=== PATIENT | female | born 1965 | race Caucasian/White ===

== ENCOUNTER → 2025-02-07 | Outpatient (CLI) | payer MEDICAID, SELFPAY ==
--- NOTE | 2025-02-07 11:07 | MRI_ITS ---
PROCEDURE: MRI SPINE LUMBAR (ROUTINE) 02/07/2025 REASON FOR EXAM: PAIN, RADICULOPATHY TECHNIQUE: Procedure Code: MRISPL Modality: MR Procedure: SPINE LUMBAR (ROUTINE) Multiplanar and multisequential MRI of the lumbar spine was performed without contrast. COMPARISON: Radiographs dated 11/08/2024. FINDINGS: 5 [id number] lumbar-type vertebrae are preserved in height, with anatomic alignment and normal marrow signal. Mild multilevel spondylotic changes with varying degrees of disc desiccation and narrowing, anterior endplate osteophytosis, and hypertrophic facet arthropathy. Conus appears normal in signal and morphology, terminating at L1. Normal appearance of the cauda equina. No significant abnormality in the visualized paravertebral soft tissues. L1-2: Mild dorsal annular disc bulge, no significant spinal canal or foraminal narrowing. L2-3: Dorsal disc bulge and ligamentum flavum/facet hypertrophy, results in mild spinal canal narrowing predominantly with effacement of the left lateral recess. No significant foraminal narrowing. L3-4: No significant disc bulge, spinal canal or foraminal narrowing. L4-5: Mild dorsal annular disc bulge, with mild spinal canal and bilateral neural foraminal narrowing. L5-S1: Mild dorsal annular disc bulge. No significant spinal canal narrowing. Mild bilateral neural foraminal narrowing, slightly more pronounced on the right. MRI/Spine Lumbar (Routine) IMPRESSION: 1. No acute abnormality. No subluxation. 2. Mild multilevel spondylotic changes. No high-grade spinal canal narrowing. There is at most mild left lateral recess stenosis at the level of L2-3. 3. Neural foraminal narrowing is mild bilaterally at L4-5 and L5-S1. Reading Location: [id number]
== END | disposition home or self-care (01) ==
PROVIDERS: PCP Nurse Practitioner Family; Referring Provider Student in an Organized Health Care Education/Training Program; Visit Provider Student in an Organized Health Care Education/Training Program
DX: M54.16 Radiculopathy, lumbar region (principal); M43.16 Spondylolisthesis, lumbar region; M51.360 Other intervertebral disc degeneration, lumbar region with discogenic back pain only
CPT/HCPCS: 72148

== ENCOUNTER → 2025-03-04 | Outpatient (CLI) | payer MEDICAID, SELFPAY ==
--- NOTE | 2025-03-04 10:07 | MRI_ITS ---
PROCEDURE: SPINE CERVICAL (ROUTINE) 03/04/2025 REASON FOR EXAM: L ARM PAIN, WORSENING DEXTERITY TECHNIQUE: Procedure Code: MRISPC Modality: MR Procedure: SPINE CERVICAL (ROUTINE) Multiplanar and multisequence images were obtained without IV contrast administration. COMPARISON: January 31, 2025 FINDINGS: Minimal straightening of the cervical lordosis. Cord signal is grossly unremarkable. There is degenerative disc space narrowing between C5 and C7 and minimal anterolisthesis of C4 on C5. A partially empty sella is likely present but incompletely included in the field of view. The paravertebral soft tissues are unremarkable although the left vertebral artery is fairly diminutive on image 34, series 65 and may be diseased. C2-3: No significant disc disease. AP canal diameter is 8.6 mm. C3-4: There is a broad-based posterior disc bulge more pronounced in the central zone and in the left foraminal zone with minimal narrowing of the left neural foramen. There is left-sided facet arthropathy as well. The AP canal diameter measures 8.7 mm. C4-5: There is a broad-based posterior disc bulge most pronounced in the [id number]-right foraminal zone. There is bilateral facet arthropathy as well. The left neural foramen is likely narrowed. The AP canal diameter measures 9.3 mm. C5-6: There is a broad-based disc bulge most pronounced in the right subarticular and foraminal zones on image 54, series 65. The neural foramen is slightly narrowed. The AP canal diameter measures 8.9 mm. C6-7: There are foraminal zone protrusions with narrowing of the neural foramina bilaterally as well as left-sided facet arthropathy. The central canal measures 9.8 mm. C7-T1: Unremarkable MRI/Spine Cervical (Routine) IMPRESSION: Multilevel degenerative disc disease and generalized central canal narrowing wi th details as described above by individual level. The left vertebral artery is potentially significantly narrowed at around C4-C5 . Correlate clinically. CTA if clinically indicated. Additional findings as above. Reading Location: [facility]
--- OUTSIDE RECORDS SUMMARY | 2025-03-04 11:44 | XMS RPT_ITS | CCD ---
Author Organization [facility] Care Team Providers Care Computer Analyst Name Role Phone RHONDA GUTIERREZ, ALEXANDREA Ramirez Primary Care Physicia n MELISSA DARLING MD Attending Unavailying e RHONDA GUTIERREZ, ALEXANDREA Ramirez Primary Care Unava ilable MELISSA DARLING MD Attending Unavailying e RHONDA GUTIERREZ, ALEXANDREA Ramirez Primary Care Unava ilable Rhonda HARBOR TUG CAPTAIN-CAlexandrea Primary Care Provider [phone] Rhonda HARBOR TUG CAPTAIN-C, Alexandrea Referring Provider Paris Jones Attending Provider [phone] Anastasiia MAZARIEGOS, Dr. Barriga Attending Provider [phone] Unavailable Primary Care Provider UnavailMAGALY Cruz Attending Unavailable PARIS CORTES Primary Care Unavailable PARIS CORTES Attending Unavailable ALEXANDREA ECHOLS CNP Consulting Unavailable PARIS CORTES Admitting Unavailable PROVIDER, UNKNOWN Consulting Unavailable PROVIDER, UNKNOWN Consulting Unavailable ALEXANDREA ECHOLS CNP Primary Care Unavailable ALEXANDREA ECHOLS CNP Attending Unavailable ALEXANDREA ECHOLS CNP Consulting Unavailable ALEXANDREA ECHOLS CNP Admitting Unavailable PROVIDER, UNKNOWN Consulting Unavailable PROVIDER, UNKNOWN Consulting Unavailable ALEXANDREA ECHOLS CNP Consulting Unavailable ALEXANDREA ECHOLS CNP Admitting Unavailable ALEXANDREA ECHOLS CNP Attending Unavailable ALEXANDREA ECHOLS CNP Primary Care Unavailable PROVIDER, UNKNOWN Consulting Unavailable PROVIDER, UNKNOWN Consulting Unavailable ALEXANDREA ECHOLS CNP Consulting Unavailable ALEXANDREA ECHOLS CNP Admitting Unavailable ALEXANDREA ECHOLS CNP Attending Unavailable ALEXANDREA ECHOLS CNP Primary Care Unavailable PROVIDER, UNKNOWN Consulting Unavailable PROVIDER, UNKNOWN Consulting Unavailable ALEXANDREA ECHOLS CNP Primary Care Unavailable ALEXANDREA ECHOLS CNP Consulting Unavailable ALEAXNDREA ECHOLS CNP Attending Unavailable ALEXANDREA ECHOLS CNP Admitting Unavailable PROVIDER, UNKNOWN Consulting Unavailable PROVIDER, UNKNOWN Consulting Unavailable ALEXANDREA ECHOLS CNP Primary Care Unavailable ALEXANDREA ECHOLS CNP Consulting Unavailable ALEXANDREA ECHOLS CNP Attending Unavailable ALEXANDREA ECHOLS CNP Admitting Unavailable PROVIDER, UNKNOWN Consulting Unavailable PROVIDER, UNKNOWN Consulting Unavailable ALEXANDREA ECHOLS CNP Primary Care Unavailable ALEXANDREA ECHOLS CNP Consulting Unavailable ALEXANDREA ECHOLS CNP Attending Unavailable ALEXANDREA ECHOLS CNP Admitting Unavailable PROVIDER, UNKNOWN Consulting Unavailable PROVIDER, UNKNOWN Consulting Unavailable ALEXANDREA ECHOLS CNP Consulting Unavailable MISSY MEAD DO Primary Care Unavailable MISSY MEAD DO Attending Unavailable ALEXANDREA ECHOLS CNP Referring Unavailable MISSY MEAD DO Admitting Unavailable PROVIDER, UNKNOWN Consulting Unavailable PROVIDER, UNKNOWN Consulting Unavailable Rhonda COELHO-CAlexandrea Primary Care Physician [phone] Paris Jones Attending Physician [phone] Anastasiia MAZARIEGOS, Dr. Barriga Attending Physician [phone] Paris Jones Referring Provider Paris Cortes Attending Unavailable Rhonda HARBOR TUG CAPTAIN, Alexandrea Primary Care Unavailable Rhonda COELHO, Alexandrea Referring Unavailable Linus Laurent Attending Unavailable Rhonda COELHO, Alexandrea Primary Care Unavailable Rhonda HARBOR TUG CAPTAIN, Alexandrea Referring Unavailable Rhonda COELHO, Alexandrea Primary Care Unavailable Paris Cortes Attending Unavailable Cindy Cortesyn Attending Unavailable Rhonda COELHO, Alexandrea Primary Care Unavailable Rhonda COELHO, Alexandrea Referring Unavailable Dillon Cortestlyn Referring Unavailable Rhonda COELHO, Alexandrea Primary Care Unavailable Cindy Cortesyn Attending Unavailable Cindy Cortesyn Attending Unavailable Cindy Cortesyn Referring Unavailable Rhonda HARBOR TUG CAPTAIN, Alexandrea Primary Care Unavailable Linus Laurent Attending Unavailable Rhonda HARBOR TUG CAPTAIN, Alexandrea Primary Care Unavailable Allergies Allergy Classification Reported Allergen(s) Allergy Type Date of Onset Reaction(s) Facility (1 source) blood pressure; Translations: [blood pressure] Propensity to adverse reactions (disorder) 5 [facility] Medications Current Medications Medication Drug Class(es) Dates Sig (Normalized) Sig (Original) benazepril hydrochloride 20 mg oral tablet (6 sources) Angiotensin Converting Enzyme Inhibitor Start: 9 take 1 tablet by mouth once daily Benazepril 20 mg tablet Active 20 mg PO DAILY December 25, 2019 12:00am Complies with drug therapy cyclobenzaprine hydrochloride 5 mg oral tablet (4 sources) Muscle Relaxant Start: 1 take 1 tablet by mouth at bedtime as needed Cyclobenzaprine 5 mg tablet Active 5 mg PO AT BEDTIME as needed January 15, 2021 12:00am Complies with drug therapy escitalopram 10 mg oral tablet (1 source) Serotonin Reuptake Inhibitor Start: 5 take 1 tablet by mouth once daily escitalopram oxalate (LEXAPRO) 10 mg tablet Take 1 tablet by mouth once daily. 10/11/2024 Active hydroCHLOROthiazide 25 mg oral tablet (6 sources) Thiazide Diuretic Start: 9 take 1 tablet by mouth once Hydrochlorothiazide 25 mg tablet Active 25 mg PO ONCE December 25, 2019 12:00am Complies with drug therapy ibuprofen 800 mg oral tablet (5 sources) Nonsteroidal Anti-inflammator y Drug Start: 5 take 1 tablet by mouth three times daily Ibuprofen 800 mg tablet Active 800 mg PO THREE TIMES A DAY November 08, 2024 12:00am Complies with drug therapy labetalol hydrochloride 200 mg oral tablet (7 sources) beta-Adrenergic Stephenie Start: 4 labetalol 200 mg oral tablet See Instructions, 1.5 tab Oral 1-[address] angiogram, # 2 tab(s), 0 Refill(s) Start Date: 06/23/23 Status: Ordered Start: 06-19-2008 take 1 tablet by [place] th twice daily Labetalol 200 mg tablet Active 200 mg PO TWICE A DAY December 25, 2019 12:00am Complies with drug therapy LORazepam 1 mg oral tablet (4 sources) Benzodiazepine Start: 02-17-2025 take 1 tablet by mouth twice daily Lorazepam 1 mg tablet Active 1 mg PO TWICE A DAY as needed for claustrophobia 2 0 February 17, 2025 12:00am take 1 tab 1 hour before MRI, take 2nd when you arrive for MRI Complies with drug therapy Start: 02-17-2025 take 1 tablet by [place] [facility] twice daily Lorazepam 1 mg tablet Active 1 mg PO TWICE A DAY as needed for claustrophobia 2 0 February 17, 2025 12:00am take 1 tab 1 hour before MRI, take 2nd when you arrive for MRI Complies with drug therapy Start: 11-21-2024 End: 02-17-2025 take 1 tablet by mouth twice daily Lorazepam (Ativan) 1 mg tablet Discontinued 1 mg PO TWICE A DAY as needed for claustrophobia 2 0 November 21, 2024 12:00am February 17, 2025 11:37am take 1 tablet 1 hour before MRI, take 2nd tablet when you arrive for the MRI methocarbamol 500 mg oral tablet (6 sources) Muscle Relaxant Start: 11-08-2024 End: 01-31-2025 take 1 tablet by mouth three times daily as needed for pain Methocarbamol 500 mg tablet Active 500 mg PO THREE TIMES A DAY as needed for pain/spasms 30 0 January 31, 2025 10:30am Complies with drug therapy pramipexole dihydrochloride 0.25 mg oral tablet (6 sources) Nonergot Dopamine Agonist Start: 01-31-2025 take 1 tablet by mouth at bedtime Pramipexole 0.25 mg tablet Active 0.25 mg PO AT BEDTIME January 31, 2025 12:00am Complies with drug therapy Start: 11-08-2024 End: 01-31-2025 take 1 tablet by mouth once daily Pramipexole 0.125 mg tablet Discontinued 0.125 mg PO daily November 08, 2024 12:00am January 31, 2025 9:56am topiramate 25 mg oral tablet (2 sources) Start: 01-31-2025 Topiramate 25 mg tablet Active mg PO January 31, 2025 12:00am Complies with drug therapy Completed/Discontinued Medications Medication Drug Class(es) Dates Sig (Normalized) Sig (Original) celecoxib 200 mg oral capsule (4 sources) Nonsteroidal Anti-inflammatory Drug Start: 01-27-2022 End: 02-26-2022 take 1 capsule by mouth once daily Celecoxib (Celebrex) 200 mg capsule Discontinued 200 mg PO DAILY 30 30 0 January 27, 2022 12:00am February 25, 2022 12:00am February 26, 2022 12:10am Primary osteoarthritis of left knee Unilateral primary osteoarthritis, left knee Pain Do not take in conjunction with other NSAIDs. Tylenol is okay. meloxicam 15 mg oral tablet (8 sources) Nonsteroidal Anti-inflammatory Drug Start: 12-25-2019 End: 01-27-2022 take 1 tablet by mouth once daily Meloxicam 15 mg tablet Discontinued 15 mg PO DAILY December 25, 2019 12:00am January 27, 2022 11:46am naproxen 500 mg oral tablet (4 sources) Nonsteroidal Anti-inflammatory Drug Start: 12-25-2019 End: 01-15-2021 take 1 tablet by mouth twice daily Naproxen 500 mg tablet Discontinued 500 mg PO TWICE A DAY December 25, 2019 12:00am January 15, 2021 2:40pm Problems Active Problems Problem Classification Problem Date Documented Date Episodic/Chronic Essential hypertension (7 sources) Hypertensive disorder; Translations: [Essential (primary) hypertension] Onset: 07-30-2024 06-25-2023 Chronic Nonspecific chest pain (1 source) Chest pain 06-25-2023 Episodic Other acquired deformities (6 sources) Lumbar spondylolisthesis; Translations: [Spondylolisthesis, lumbar region] Episodic Other acquired deformities (6 sources) Spondylolisthesis; Translations: [Spondylolisthesis, cervical region] 01-31-2025 Episodic Other acquired deformities (1 source) Spondylolisthesis, lumbar region; Translations: [Spondylolisthesis, lumbar region] Onset: 12-02-2024 Episodic Other connective tissue disease (1 source) Pain in bilateral legs; Translations: [Pain in right leg] 11-12-2024 Episodic Other connective tissue disease (1 source) Pain in right leg; Translations: [Pain in both lower extremities] Onset: 11-12-2024 Episodic Other connective tissue disease (1 source) Pain in left leg; Translations: [Pain in both lower extremities] Onset: 11-12-2024 Episodic Other nervous system disorders (2 sources) Nerve root disorder Chronic Other nervous system disorders (4 sources) Cervical myelopathy; Translations: [Disease of spinal cord, unspecified] 01-31-2025 Chronic Other nervous system disorders (1 source) Disease of spinal cord, unspecified; Translations: [Disease of spinal cord, unspecified] Onset: 02-28-2025 Chronic Other screening for suspected conditions (not mental disorders or infectious disease) (2 sources) Encounter for screening for diabetes mellitus; Translations: [Encounter for screening for cardiovascular disorders] Onset: 02-05-2025 Episodic Spondylosis; intervertebral disc disorders; other back problems (19 sources) Degeneration of lumbar intervertebral disc; Translations: [Degeneration of intervertebral disc of lumbar region] Onset: 12-02-2024 01-15-2021 Chronic Spondylosis; intervertebral disc disorders; other back problems (20 sources) Lumbar radiculopathy; Translations: [Radiculopathy, lumbar region] Onset: 11-21-2024 01-15-2021 Episodic Unclassified (1 source) Other intervertebral disc degeneration, lumbar region without mention of lumbar back pain or lower extremity pain; Translations: [Other intervertebral disc degeneration, lumbar region without mention of lumbar back pain or lower extremity pain] Onset: 11-21-2024 Unclassified (2 sources) M54.16 - Radiculopathy, lumbar region,M51.36 - Other intervertebral disc degeneration, lumbar region Unclassified (2 sources) M54.16 - Radiculopathy, lumbar region,M43.16 - Spondylolisthesis, lumbar region,M54.12 - Radiculopathy, cervical region Unclassified (1 source) Other intervertebral disc degeneration, lumbar region with discogenic back pain and lower extremity pain; Translations: [Other intervertebral disc degeneration, lumbar region with discogenic back pain and lower extremity pain] Onset: 12-02-2024 Past or Other Problems Problem Classification Problem Date Documented Da te Episodic/Chronic Acute and unspecified renal failure (1 source) Acute kidney failure, unspecified; Translations: [Acute kidney failure, unspecified] Onset: 08-26-2024 Episodic Conditions associated with dizziness or vertigo (1 source) Benign paroxysmal vertigo, unspecified ear; Translations: [Benign paroxysmal vertigo, unspecified ear] Onset: 07-30-2024 Episodic Contraceptive and procreative management (1 source) Tubal ligation status; Translations: [Tubal ligation status] Onset: 07-30-2024 Episodic Fluid and electrolyte disorders (3 sources) Hypokalemia; Translations: [Hypokalemia] Onset: 08-20-2024 Episodic Genitourinary symptoms and ill-defined conditions (1 source) Dysuria; Translations: [Dysuria] Onset: 04-29-2024 Episodic Malaise and fatigue (2 sources) Weakness; Translations: [Weakness] Onset: 07-30-2024 Episodic Other aftercare (1 source) Other terminal block assembler (current) drug therapy; Translations: [Other skilled nursing (current) drug therapy] Onset: 07-30-2024 Episodic Residual codes; unclassified (1 source) Acquired absence of other specified parts of digestive tract; Translations: [Acquired absence of other specified parts of digestive tract] Onset: 07-30-2024 Episodic Screening and history of mental health and substance abuse codes (1 source) Personal history of nicotine dependence; Translations: [Personal history of nicotine dependence] Onset: 07-30-2024 Episodic Unclassified (4 sources) h/o gallbladder removal 11-22-2021 Results Test Name Value Interpretation Reference Range Facility Orthopedic Visit Reporton Orthopedic Visit Report [facility] [address] [place] [address] [address] [place] [address] OFFICE VISIT Date of Service: 02/17/25 MR#: [id number] Acct: [id number] Name: PARTHA BROWN Rep #: [id number] : 1965 Provider: BONITA Ocampo Age/Sex: 59/F Location: [facility] Status: Signed Intake Vital Signs 01/31/25 09:52 Height 5 ft 7.25 in Weight: 225 lb BMI 34.9 Intake Visit Reasons: CERVICAL SPINE Chief Complaint: Lumbar MRI review Accompanied by: Self Is patient in pain?: Yes (lumbar spine) Pain scale (1-10): 8 Allergies blood pressure Adverse Reaction (Uncoded 02/17/25 11:36) rash Medications ???Medication ???Instructions ???Recorded ???Confirmed ???Type benazepril 20 mg tablet 20 mg PO DAILY 12/25/19 02/17/25 H istory hydrochlorothiazide 25 mg tablet 25 mg PO ONCE 12/25/19 02/17/25 Hi story labetalol 200 mg tablet 200 mg PO BID 12/25/19 02/17/25 Hi story cyclobenzaprine 5 mg tablet 5 mg PO QHS PRN 01/15/21 02/17/25 History ibuprofen 800 mg tablet 800 mg PO TID 11/08/24 02/17/25 Hi story methocarbamol 500 mg tablet 500 mg PO TID PRN pain/spasms #30 01/31/25 02/17/25 Rx tabs pramipexole 0.25 mg tablet 0.25 mg PO QHS 01/31/25 02/17/25 H istory topiramate 25 mg tablet mg PO 01/31/25 02/17/25 History lorazepam 1 mg tablet 1 mg PO BID PRN claustrophobia #2 02/17/25 02/17/25 Rx tabs PFSH Medical History Hypertension Surgical History H/O tubal ligation h/o gallbladder removal History of appendectomy Family History Mother Hypertension Diabetes Arthritis Father Hypertension Diabetes Brother Myocardial infarction Grandfather Myocardial infarction Aunt Cancer Social History household members: children and other details: son in law, two grandchildren, daughter and son Smoking Status: Never smoker alcohol intake: current alcohol intake frequency: holidays/special occasions only what type of physical activity do you participate in: none do you feel safe at home: Yes HPI CERVICAL SPINE Details: This documentation accurately reflects the service provided and the decisions made by me, BONITA Ocampo 02/17/25 1133. Part of today???s visit was documented by Rosalinda Yee RN, acting as scribe. PARTHA BROWN is a 59 year old F here today for lumbar MRI review. She states her symptoms are the same as her last visit. She has not seen pain management. She complains of bilateral low back pain that radiates down her posterior leg down to her toes. She reports numbness and tingling into her bilateral feet. She is not able to walk long distances. She does have to lean on the shopping cart while at the store. She would like to discuss MRI results and next steps. HPI from 01/31/25: PARTHA BROWN is a 59 year old F here today for cervical spine. Patent states that her pain is a 7 today. The patient says that she has been having neck pain for the last year, worsening over the last 2 to 3 months. She states that she will be getting the MRI next Monday of her lumbar spine which continues to bother her more than her cervical spine. Patient states that her pain in her neck is coming from the back of her neck. She states that she will get pain going down the left arm. The pain in the left arm is not consistent. At times she will get pain that extends down her triceps other times it will extend into her biceps. Patient states that sometimes she will get numbness and tingling in the hands. Left worse than right. Patient is right hand dominant. She states that every now and then she will drop items out of her hands. Patient states that she does have some weakness in her arms. 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 She states that she does drop spoons sometimes. Doesn't seem that this is worsening. Reports a history of arthritis so she is not certain if the dexterity issues are a result of the arthritis or not. No balance changes. The pain worsens when she raises her arms up. She has recently completed 11 sessions of physical therapy for her lumbar spine with only mild benefit. The patient was taught a home exercise program which she has been completing on her own several times per week. HPI from 11/08/24: PARTHA BROWN is a 58 year old F here today for lumbar spine. Patient is having lower back pain. The pain is an achy, and the throbbing pain. She states that it goes down the legs sometimes. Patient does have numbness and tingling in the feet and toes. Goes d own both legs, equally. Sometimes worse on the left side. Pain goes down the back of the legs to the calfs and the toes. This has been going on (more content not included)... Normal [facility] Spine Lumbar (Routine)on Spine Lumbar (Routine) [facility] [address] [place], [place] [id number] Spine Lumbar (Routine) MR#: [id number] Acct: [id number] Name: PARTHA BROWN Rep #: [id number] : 1965 F 59 From: Buddy Richards MD PCP: AMY Finney Status: REG CLI Study: Spine Lumbar (Routine) Date of Exam: 02/07/25 Exam# [id number] Ordering Dr: Paris Cortes PROCEDURE: MRI SPINE LUMBAR (ROUTINE) 02/07/2025 REASON FOR EXAM: PAIN, RADICULOPATHY TECHNIQUE: Procedure Code: MRISPL Modality: MR Procedure: SPINE LUMBAR (ROUTINE) Multiplanar and multisequential MRI of the lumbar spine was performed without contrast. COMPARISON: Radiographs dated 11/08/2024. FINDINGS: 5 [id number]-sjh-zyuoffy lumbar-type vertebrae are preserved in height, with anatomic alignment and normal marrow signal. Mild multilevel spondylotic changes with varying degrees of disc desiccation and narrowing, anterior endplate osteophytosis, and hypertrophic facet arthropathy. Conus appears normal in signal and morphology, terminating at L1. Normal appearance of the cauda equina. No significant abnormality in the visualized paravertebral soft tissues. L1-2: Mild dorsal annular disc bulge, no significant spinal canal or foraminal narrowing. L2-3: Dorsal disc bulge and ligamentum flavum/facet hypertrophy, results in mild spinal canal narrowing predominantly with effacement of the left lateral recess. No significant foraminal narrowing. L3-4: No significant disc bulge, spinal canal or foraminal narrowing. L4-5: Mild dorsal annular disc bulge, with mild spinal canal and bilateral neural foraminal narrowing. L5-S1: Mild dorsal annular disc bulge. No significant spinal canal narrowing. Mild bilateral neural foraminal narrowing, slightly more pronounced on the right. MRI/Spine Lumbar (Routine) IMPRESSION: 1. No acute abnormality. No subluxation. 2. Mild multilevel spondylotic changes. No high-grade spinal canal narrowing. There is at most mild left lateral recess stenosis at the level of L2-3. 3. Neural foraminal narrowing is mild bilaterally at L4-5 and L5-S1. Reading Location: [id number] CC: AMY Echols; BONITA Ocampo Lead Teacher: Signed Normal [facility] CBC + DIFFon 02-05-2025 Baso # 0.04 x10EE3/UL Normal 0.00 - 0.10 [facility] Comment on above: Performed By: #### 2 [id number] #### [facility],[address] [place] [address] Basophils/100 WBC (Bld) 0.4 % Normal 0.0 - 2.0 [facility] Comment on above: Performed By: #### 2 [id number] #### [facility],[address] [place] [address] CBC + DIFF Normal [facility] Comment on above: Result Comment: CBC- COMPLETE BLOOD COUNT Performed By: #### 2 [id number] #### [facility],[address] [place] [address] EO # 0.24 x10EE3/UL Normal 0.00 - 0.50 [facility] Comment on above: Performed By: #### 2 92601 #### [facility],[address] [place] [address] Eosinophils/100 WBC (Bld) 2.3 % Normal 0.0 - 7.0 [facility] Comment on above: Performed By: #### 2 73440 #### [facility],[address] [place] [address] Erythrocyte distribution width (RBC) [Ratio] 13.6 % Normal 12.0 - 15.6 [facility] Comment on above: Performed By: #### 2 95495 #### [place] [address] Hematocrit (Bld) [Volume fraction] 39.9 % Normal 34.0 - 46.0 [facility] Comment on above: Performed By: #### 2 31886 #### [facility],[address] [place] [address] Hemoglobin (Bld) [Mass/Vol] 13.7 g/dL Normal 12.0 - 16.0 [facility] Comment on above: Performed By: #### 2 [id number] #### [facility],[address] [place] [address] Lymph # 2.36 x10EE3/UL Normal 0.80 - 2.80 [facility] Comment on above: Performed By: #### 2 47586 #### [place] [address] Lymphocytes/100 WBC (Bld) 22.4 % Normal 20.0 - 45.0 [facility] Comment on above: Performed By: #### 2 78833 #### [facility],[address] [place] [address] MANUAL DIFF N/A Normal [facility] Comment on above: Performed By: #### 2 09423 #### [place] [address] MCH (RBC) [Entitic mass] 28 pg Normal 27 - 33 [facility] Comment on above: Performed By: #### 2 [id number] #### [place] [address] MCHC 34 X10 3 Normal 32 - 36 [facility] Comment on above: Performed By: #### 2 16882 #### [place] [address] MCV (RBC) [Entitic vol] 83 fL Normal 80 - 99 [facility] Comment on above: Performed By: #### 2 34291 #### [place] [address] [place] # 0.69 x10EE3/UL Normal 0.20 - 1.00 [facility] Comment on above: Performed By: #### 2 19343 #### [place] [address] MONOS % 6.5 % Normal 0.0 - 10.0 [facility] Comment on above: Performed By: #### 2 02594 #### [place] [address] Morphology Matthew (Bld) [Interp] N/A Normal [facility] Comment on above: Performed By: #### 2 90651 #### [place] [address] Neut # 7.20 x10EE3/UL High 1.50 - 7.10 [facility] Comment on above: Performed By: #### 2 88044 #### [facility],[address] [place] [address] Neutrophils/100 WBC (Bld) 68.4 % Normal 46.0 - 76.0 [facility] Comment on above: Performed By: #### 2 75787 #### [facility],[address] [place], [place] [id number] PLATELET 415 x10EE3/UL Normal 150 - 450 [facility] Comment on above: Performed By: #### 2 20361 #### [facility],[address] [place] [address] Platelet mean volume (Bld) [Entitic vol] 7.9 fL Normal 6.6 - 10.5 [facility] Comment on above: Result Comment: AUTO MATED DIFFERENTIAL Performed By: #### 2 56564 #### [facility],[address] [place], [place] [id number] RBC 4.83 x 10EE6/UL Normal 4.10 - 5.30 [facility] Comment on above: Performed By: #### 2 40460 #### [facility],[address] [place] [address] WBC 10.5 x 10EE3/UL Normal 4.5 - 10.8 [facility] Comment on above: Performed By: #### 2 56078 #### [facility],[address] [place], [place] [id number] CMP with eGFRon 02-05-2025 AGE 59 years Normal [facility] Comment on above: Performed By: #### 2 [address] #### [facility],[address] [place] [address] 17725 Albumin [Mass/Vol] 4.1 g/dL Normal 3.4 - 5.0 [facility] Comment on above: Performed By: #### 2 70590 #### [facility],[address] [place] [address] 64554 Albumin/Globulin [Mass ratio] 1.2 {ratio} Normal 0.9 - 1.6 [facility] Comment on above: Performed By: #### 2 68733 #### [facility],[address] [place] [address] 55947 ALK PHOS 94 U/L Normal 46 - 116 [facility] Comment on above: Performed By: #### 2 32338 #### [facility],[address] [place] [address] 98202 ALT [Catalytic activity/Vol] 23 U/L Normal 16 - 63 [facility] Comment on above: Performed By: #### 2 57549 #### [facility],[address] [place] [address] 98431 Anion gap [Moles/Vol] 14 mmol/L Normal 10 - 20 [facility] Comment on above: Performed By: #### 2 49349 #### [facility],[address] [place] [address] 01330 AST [Catalytic activity/Vol]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 #### 2 18944 #### [facility],[address] [place] [address] 81234 CO2 [Moles/Vol] 29.1 mmol/L Normal 21.0 - 32.0 [facility] Comment on above: Performed By: #### 2 25118 #### [facility],[address] [place] [address] 67452 Creatinine [Mass/Vol] 0.88 mg/dL Normal 0.55 - 1.02 [facility] Comment on above: Performed By: #### 2 85971 #### [facility],[address] [place] [address] 64064 GFR/1.73 sq M.predicted among non-blacks MDRD (S/P/Bld) [Vol rate/Area] mL/min/{1.73_m2} Normal 60 - 999 [facility] Comment on above: Performed By: #### 2 92686 #### [facility],[address] [place] [address] 23433 Result Comment: ACCO RDING TO THE NATIONAL KIDNEY DISEASE EDUCATION PROGRAM(NKDE), A NORMAL eGFR IS A VALUE GREATER THAN OR EQUAL TO 60 ML/MIN/1.73 SQ METERS. CHRONIC KIDNEY DISEASE: <60mL/MIN/1.73 SQ METERS KIDNEY FAILURE: <15mL/MIN/1.73 SQ METERS THIS TEST SHOULD ONLY BE USED FOR PATIENTS 18 YEARS OF AGE AND OLDER. Globulin (S) [Mass/Vol] 3.8 g/dL Normal 1.5 - 3.8 [facility] Comment on above: Performed By: #### 2 79609 #### [facility],[address] [place] [address] 34571 Glucose [Mass/Vol] 131 mg/dL High 74 - 106 [facility] Comment on above: Performed By: #### 2 08134 #### [facility],[address] [place] [address] 44697 Potassium [Moles/Vol] 3.9 mmol/L Normal 3.5 - 5.1 [facility] Comment on above: Performed By: #### 2 65252 #### [facility],[address] [place] [address] 26009 Protein [Mass/Vol] 7.8 g/dL Normal 6.4 - 8.2 [facility] Comment on above: Performed By: #### 2 30033 #### [facility],[address] [place] [address] 93005 Sodium [Moles/Vol] 140 mmol/L Normal 136 - 145 [facility] Comment on above: Performed By: #### 2 88666 #### [facility],[address] [place] [address] 03699 Urea nitrogen [Mass/Vol] 19 mg/dL High 7 - 18 [facility] Comment on above: Performed By: #### 2 13085 #### [facility],[address] [place] [address] 75704 CMP with eGFRon 08-20-2024 AGE 58 years Normal [facility] Comment on above: Performed By: #### 2 10003 #### [facility],[address] [place] [address] 43073 Albumin [Mass/Vol] 3.8 g/dL Normal 3.4 - 5.0 [facility] Comment on above: Performed By: #### 2 83461 #### [facility],[address] [place] [address] 49591 Albumin/Globulin [Mass ratio] 1.0 {ratio} Normal 0.9 - 1.6 [facility] Comment on above: Performed By: #### 2 59153 #### [facility],[address] [place] [address] 83980 ALK PHOS 95 U/L Normal 46 - 116 [facility] Comment on above: Performed By: #### 2 03327 #### [facility],[address] [place] [address] 30204 ALT [Catalytic activity/Vol] 22 U/L Normal 16 - 63 [facility] Comment on above: Performed By: #### 2 77569 #### [facility],[address] [place] [address] 45905 Anion gap [Moles/Vol] 11 mmol/L Normal 10 - 20 [facility] Comment on above: Performed By: #### 2 71616 #### [facility],[address] [place] [address] 76496 AST [Catalytic activity/Vol] 17 U/L Normal 13 - 39 [facility] Comment on above: Performed By: #### 2 34366 #### [facility],[address] [place] [address] 81199 B/C RATIO 18 ratio Normal 0 - 30 [facility] Comment on above: Performed By: #### 2 95837 #### [facility],[address] [place] [address] 83320 Bilirubin [Mass/Vol] 0.3 mg/dL Normal 0.2 - 1.0 [facility] Comment on above: Performed By: #### 2 49470 #### [facility],[address] [place] [address] 07096 Calcium [Mass/Vol] 9.8 mg/dL Normal 8.5 - 10.1 [facility] Comment on above: Performed By: #### 2 11163 #### [facility],[address] [place] [address] 03367 Chloride [Moles/Vol] 103 mmol/L Normal 98 - 107 [facility] Comment on above: Performed By: #### 2 24765 #### [facility],[address] [place] [address] 03104 CMP with eGFR Normal [facility] Comment on above: Result Comment: COMP REHENSIVE METABOLIC PANEL Performed By: #### 2 43140 #### [facility],[address] [place] [address] 64712 CO2 [Moles/Vol] 29.6 mmol/L Normal 21.0 - 32.0 [facility] Comment on above: Performed By: #### 2 09014 #### [facility],[address] [place] [address] 06966 Creatinine [Mass/Vol] 1.13 mg/dL High 0.55 - 1.02 [facility] Comment on above: Performed By: #### 2 85899 #### [facility],[address] [place] [address] 58723 eGFR 49 ML/MINUTE Low 60 - 999 [facility] Comment on above: Performed By: #### 2 84659 #### [facility],[address] [place] [address] 71087 eGFR(AA) 60 ML/MINUTE Normal 60 - 999 [facility] Comment on above: Result Comment: ACCO RDING TO THE NATIONAL KIDNEY DISEASE EDUCATION PROGRAM(NKDE), A NORMAL eGFR IS A VALUE GREATER THAN OR EQUAL TO 60 ML/MIN/1.73 SQ METERS. CHRONIC KIDNEY DISEASE: <60mL/MIN/1.73 SQ METERS KIDNEY FAILURE: <15mL/MIN/1.73 SQ METERS THIS TEST SHOULD ONLY BE USED FOR PATIENTS 18 YEARS OF AGE AND OLDER. Performed By: #### 2 01204 #### [facility],[address] [place] [address] 23165 Globulin (S) [Mass/Vol] 3.8 g/dL Normal 1.5 - 3.8 [facility] Comment on above: Performed By: #### 2 80927 #### [facility],[address] [place] [address] 35163 Glucose [Mass/Vol] 107 mg/dL High 74 - 106 [facility] Comment on above: Performed By: #### 2 58702 #### [facility],[address] [place] [address] 97104 Potassium [Moles/Vol] 3.9 mmol/L Normal 3.5 - 5.1 [facility] Comment on above: Performed By: #### 2 88197 #### [facility],[address] [place] [address] 15375 Protein [Mass/Vol] 7.6 g/dL Normal 6.4 - 8.2 [facility] Comment on above: Performed By: #### 2 70511 #### [facility],[address] [place] [address] 17889 Sodium [Moles/Vol] 140 mmol/L Normal 136 - 145 [facility] Comment on above: Performed By: #### 2 65419 #### [facility],[address] [place] [address] 40127 Urea nitrogen [Mass/Vol] 20 mg/dL High 7 - 18 [facility] Comment on above: Performed By: #### 2 13908 #### [facility],[address] [place] [address] 81377 ED MED ADMINISTRATION DETAIL on 07-31-2024 ED MED ADMINISTRATION DETAIL Natural Resources Manager Medication Administration Record [address] [place] [address] [id number] 07/30/2024 Patient: PARTHA BROWN Sex: Female : 1965 Age: 58y MEASUREMENTS: Wt: 95.3 kg, Ht/Bobby: 67.0 in, BMI: 32.89 ALLERGIES: No known drug allergies Medication Ordered Medication Administration Date/Time IV NS 0.9 % 1000 06:57 07/30 IV NS 0.9 % 1000 mL started in bag#1 1000 mL at Started mL at 999 mL/hr 999 mL/hr via Site# 1. Allergies verified and confirmed 5 rights. Via 06:57 07/30/2024 (NOW x1) dial-a-flow. IV patency established. IV site checked: no pain, Clarence Cotto R.N. redness, or swelling. IV flushed thoroughly pre-medication Stopped administration. Information reviewed with patient including reason 08:24 07/30/2024 for taking this medication. Verbalizes understanding. - 06:58 Salvador Camargo R.N. Scanned 08:24 04 Medication Discontinued: bag #1 completed. Total amount infused: 1000 mL. - 08:24 Luis Fernando Gupta R.N. Meclizine (Antivert) 06:58 07/30 Meclizine (Antivert) PO 25 mg given. Allergies verified Given PO 25 mg (NOW x1) and confirmed 5 rights. Information reviewed with patient including 06:58 07/30/2024 reason for taking this medication. Verbalizes understanding. - Clarence Cotto R.N. 06:59 Clarence Cotto R.N. Scanned 08:25 07/30 Medication Response: Symptoms have improved. The patient feels better. (Pt reports that dizziness has nearly resolved.). - 08:26 Luis Fernando Gupta R.N. 1 of 2 Natural Resources Manager Medication Ordered Medication Administration Date/Time Potassium Chloride 08:29 07/30 Potassium Chloride PO 40 mEq given. Allergies Given PO 40 mEq (NOW verified and confirmed 5 rights. Information reviewed with patient 08:29 07/30/2024 x1) including reason for taking this medication, signs of allergic reaction Luis Fernando Gupta R.N. and precautions. Verbalizes understanding. - 08:30 Jennie Camargo R.N. 2 of 2 Normal [facility] ED NURSES CLINICAL NOTEon ED NURSES CLINICAL NOTE Nurse Narrative Nurse Clinical Narrative [address] [place] [address] [id number] 07/30/2024 06:35:00 Patient: PARTHA BROWN Sex: Female : 1965 Age: 58y Disposition: Discharge to Home Disposition Decision Time: 08:26 07/30/2024 Departure Time: 08:49 07/30/2024 TRIAGE Arrived by private vehicle. Historian: (patient and family). Accompanied by family. Acuity: LEVEL 3. Chief Complaint: DIZZINESS, WEAKNESS, LIGHT HEADED, NEAR-SYNCOPE and VERTIGO. 06:36 07/30/24. Alert. The patient has had nausea, trouble walking and weakness. ( started 1 hour ago, room spinning, seeing stars felt like she was going to pass out felt clammy and nauseated, now slightly better, states she had cataract surgery this past .). No ear pain, headache, vomiting, fainting episodes or tinnitus. SEPSIS SCREEN: NEGATIVE. SIRS criteria negative. No possible sources of infection. -- 06:46 07/30/24 EDT Clarence Cotto R.N. Triage time: 06:40 07/30/2024. -- 06:52 07/30/24 EDT Clarence Cotto R.N. 06:45 07/30/24. BP: 161/89 MAP: 113. HR: 76. RR: 16. Temperature: 98 F. Pain level now 0/10. -- 06:45 07/30/24 EDT Clarence Cotto R.N. Measurements: 06:45 07/30/24 Wt: 95.3 kg, Ht/Bobby: 67.0 in, BMI: 32.89 -- 06:45 07/30/24 EDT Clarence Cotto R.N. Medications: 1 of 5 Nurse Narrative ofloxacin 0.3 % eye drops: 1 drop four times a day. -- 06:51 07/30/24 EDT Clarence Cotto R.N. labetalol 200 mg tablet: 1 tablet once a day. -- 06:51 07/30/24 EDT Claernce Cotto R.N. ibuprofen 800 mg tablet: 1 as needed. -- 06:51 07/30/24 CHRISTIANT Clarence Cotto R.N. hydrochlorothiazide 25 mg tablet: 1 once a day. -- 06:51 07/30/24 EDT Clarence Cotto R.N. escitalopram 5 mg tablet: 1 tablet once a day. -- 06:51 07/30/24 EDT Clarence Cotto R.N. benazepril 20 mg tablet: 1 tablet once a day. -- 06:51 07/30/24 EDT Clarence Cotto R.N. 06:36 07/30/24. Preferred Pharmacy: ([facility]). -- 06:46 07/30/24 CHRISTIANT Clarence Cotto R.N. Allergies: no known drug allergies -- 06:41 07/30/24 CHRISTIANT Clarence Cotto R.N. Problems: Hypertension -- 06:42 07/30/24 EDT Clarence Cotto R.N. ADDITIONAL SURGERIES: Appendectomy -- 06:42 07/30/24 CHRISTIANT Clarence Cotto R.N. Cholecystectomy -- 06:42 07/30/24 EDT Clarence Cotto R.N. Tubal Ligation -- 06:43 07/30/24 CHRISTIANT Clarence Cotto R.N. Cataract Surgery -- 06:43 07/30/24 EDT Clarence Cotto R.N. History 06:36 07/30/24. PAST MEDICAL HX: Immunizations: up-to-date. SOCIAL HX: Former smoker, end date 1994. The patient has not traveled outside the [place] Infectious disease exposure: No infectious disease exposure. ABUSE ASSESSMENT: The patient answered yes to the question(s) Do you feel safe in your home? and no to the question(s) Are you afraid to go home?. SELF HARM ASSESSMENT: Self harm assessment was performed. The patient answered no to the question(s) Have you recently felt down, depressed, or hopeless? and Do you have thoughts of harming or killing yourself?. 2 of 5 Nurse Narrative FALL RISK ASSESSMENT: Fall risk assessment completed. No risk factors identified. -- 06:46 07/30/24 FAUSTINO Cotto R.N. Interventions 06:36 07/30/24. Identification band on patient. Advanced care plan. Patient does not have advanced directive. -- 06:46 07/30/24 CHRISTIANT Clarence Cotto R.N. PHYSICAL ASSESSMENT 07:01 07/30/24. Ambulatory to room. Patient gowned. GENERAL / NEURO / PSYCH: Oriented X 4. Appears in distress. Alert. No alteration in mental status. Normal verbal response. Speech within normal limits. Mood/affect normal. The patient has weakness. No numbness. Normal gait. ( c/o sudden onset dizziness this morning around or before 6am today, room sping, nauseated felt syncopal.). No dysconjugate gaze. HEENT: No facial weakness. No nystagmus. Normal ear exam. No difficulty handling secretions. RESPIRATORY: Breath sounds within normal limits. Respirations not labored. CVS: No carotid bruit. Normal sinus rhythm noted. Cardiac rhythm: normal sinus rhythm. SKIN: Skin is warm and dry. -- 07:11 07/30/24 FAUSTINO Cotto R.N. NURSING PROGRESS NOTES 06:53 07/30/24. Site #1 started via IV in the right antecubital space with a 20g angiocath; 1 attempt. Blood drawn: rainbow set and childs tube(s). Labeled in the presence of the patient and sent to the lab. -- 06:58 07/30/24 FAUSTINO Cotto R.N. 06:57 07/30/24. IV NS 0.9 % 1000 mL started in bag#1 1000 mL at 999 mL/hr via Site# 1. Allergies verified and confirmed 5 rights. Via dial-a-flow. IV patency established. IV site checked: no pain, redness, or swelling. IV flushed thoroughly pre-medication administration. Information reviewed with patient including reason for taking this medication. Verbalizes understanding. -- 06:58 07/30/24 EDT Clarence Cotto R.N. 06:58 07/30/24. Meclizine (Antivert) PO 25 (more content not included)... Normal [facility] ED ORDER SHEET (CPOE ONLY)on 07-31-2024 ED ORDER SHEET (CPOE ONLY) Order Sheet Order Sheet [address] [place] [address] [id number] 07/30/2024 Patient: PARTHA BROWN Sex: Female : 1965 Age: 58y MEASUREMENTS: Wt: 95.3 kg, Ht/Bobby: 67.0 in, BMI: 32.89 ALLERGIES: No known drug allergies MEDICATION/IV/DRIP/FLU ID ORDERS Order Description Priority Entered Acknowledged Completed IV NS 0.9 %1000 mL at 999 06:45 07/30/2024 06:58 mL/hr (NOW x1) Missy Mead D.O. 07/30/2024 Clarence Cotto R.N. Meclizine (Antivert) PO25 mg 06:52 07/30/2024 06:59 (NOW x1) Missy Mead D.O. 07/30/2024 Clarence Cotto R.N. Potassium Chloride PO40 mEq 08:22 07/30/2024 08:26 08:30 (NOW x1) Tom Briseno M.D. 07/30/2024 07/30/2024 Luis Fernando Camargo R.N. R.N. Reason for ordering with alerts: Benefits outweigh risks --08:22 07/30/2024 Tom Briseno M.D. LAB ORDERS Order Description Priority Entered Acknowledged Collected Completed CBC w Diff Stat Stat 06:45 07/30/2024 06:53 07/30/2024 07:00 07/30/2024 1 of 3 Order Sheet Belinda Cazares Charles Wilbur, Salvador R.NLance CMP Stat Stat 06:45 07/30/2024 06:53 07/30/2024 07:00 07/30/2024 Belinda Cazares Charles Wilbur, Salvador R.NLance Troponin-I Stat Stat 06:45 07/30/2024 06:53 07/30/2024 07:01 07/30/2024 Belinda Cazares Charles Wilbur, Billy.Tai. R.NLance EKG - ED Stat Stat 06:45 07/30/2024 06:53 07/30/2024 07:00 07/30/2024 Belinda Cazares Charles Wilbur, R.N. R.NLance Lactate, Serum Stat Stat 06:45 07/30/2024 06:53 07/30/2024 07:00 07/30/2024 Belinda Cazares Charles Wilbur, R.N. R.NLance Urinalysis Stat Stat 06:45 07/30/2024 06:53 07/30/2024 07:43 07/30/2024 Belinda Cazares Lucas Eastep, R.NLance R.NLance BNP Stat Stat 06:45 07/30/2024 06:53 07/30/2024 07:00 07/30/2024 Belinda Cazares Charles Wilbur, R.N. R.NLance Flu Swab (Influenzae Stat 06:46 07/30/2024 06:53 07/30/2024 07:44 07/30/2024 AAg) Stat Belinda Cazares Lucas Eastep, R.NLance R.NLance Rapid COVID (SARS) Stat 06:46 07/30/2024 06:53 07/30/2024 07:44 07/30/2024 ANTIGEN TEST Stat Belinda Cazares Lucas Eastep, R.N. R.Margaux TSH Stat Stat 07:07 07/30/2024 07:07 07/30/2024 07:43 07/30/2024 Belinda Cazares Lucas Eastep, R.N. RGodwin 2 of 3 Order Sheet DIAGNOSTIC STUDY ORDERS Order Description Priority Entered Acknowledged Completed CT Brain wo Cont Stat Stat 06:44 07/30/2024 06:53 07:43 Missy Mead D.O. 07/30/2024 07/30/2024 Luis Fernando Parr R.N. R.Marguax Order Comments: 06:44 07/30/2024: Status: Not . Missy Mead D.O. Reason for Study: Dizziness Chest 1V Stat Stat 06:45 07/30/2024 06:53 07:43 Missy Mead D.O. 07/30/2024 07/30/2024 Luis Fernando Parr R.N. R.Margaux Reason for Study: Pneumonia STAFF ORDERS Order Description Priority Entered Acknowledged Collected Completed Vitals - Orthostatic 06:44 07/30/2024 06:53 07/30/2024 07:43 07/30/2024 Belinda Cazares Lucas Eastep, R.NLance R.Margaux Vital Signs every 30 06:45 07/30/2024 06:53 07/30/2024 07:01 07/30/2024 minutes Belinda Caazres Charles Wilbur, R.N. R.Margaux Booster Assembler 06:45 07/30/2024 06:53 07/30/2024 07:01 07/30/2024 Belinda Cazares Charles Wilbur, R.N. R.NLance Oxygen titrate to 92% 06:45 07/30/2024 06:53 07/30/2024 07:01 07/30/2024 Belinda Cazares Charles Wilbur, R.Tai. R.NLance [Electronically signed by Tom Briseno M.D. (07/30/2024 08:30 EDT)] 3 of 3 Normal [facility] ED PHYSICIAN CLINICAL REPORT on 07-31-2024 ED PHYSICIAN CLINICAL REPORT Narrative Physician Clinical Narrative [facility] [address] [place] [address] [id number] 07/30/2024 06:35:00 Patient: PARTHA BROWN Sex: Female : 1965 Age: 58y Disposition: Discharge to Home Disposition Decision Time: 08:26 07/30/2024 Measurements Wt: 95.3 kg, Ht/Bobby: 67.0 in, BMI: 32.89 Initial Vital Sign Measured Time BP MAP HR RR O2Sat ETCO2 Temp Pain GCS RTS 06:45 07/30/2024 161/89 113 76 16 94% 98.0 F 0 PAST HISTORY Hypertension Surgeries: Appendectomy Cataract Surgery Cholecystectomy Tubal Ligation Medications: benazepril 20 mg tablet: 1 tablet once a day. escitalopram 5 mg tablet: 1 tablet once a day. hydrochlorothiazide 25 mg tablet: 1 once a day. ibuprofen 800 mg tablet: 1 as needed. labetalol 200 mg tablet: 1 tablet once a day. Narrative ofloxacin 0.3 % eye drops: 1 drop four times a day. Allergies: no known drug allergies LABS, X-RAYS, AND EKG Chest X-ray: No acute disease. The X-rays were independently viewed by me. Interpretation time: 08:23 07/30/2024. CT Head: No acute disease. Laboratory Tests: CBC + DIFF Final IDANIA: 07/30/2024 06:55:00 EDT MsgRcvd: 07/30/2024 07:10 EDT Lab Test Result Reference Status Received Comments 07/30/2024 07:10 CBC-COMPLETE CBC + DIFF Final EDT BLOOD COUNT 07/30/2024 07:10 WBC 8.6 x 10/UL 4.5 - 10.8 Final EDT 07/30/2024 07:10 RBC 4.50 x 10/UL 4.10 - 5.30 Final EDT 07/30/2024 07:10 HEMOGLOBIN 12.9 g/dl 12.0 - 16.0 Final EDT 07/30/2024 07:10 HEMATOCRIT 37.4 % 34.0 - 46.0 Final EDT 07/30/2024 07:10 MCV 83 fl 80 - 99 Final EDT 07/30/2024 07:10 MCH 29 pg 27 - 33 Final EDT 2 of 31 Narrative Lab Test Result Reference Status Received Comments 07/30/2024 07:10 MCHC 34 X10 3 32 - 36 Final EDT 07/30/2024 07:10 RDW/CV 13.8 % 12.0 - 15.6 Final EDT 07/30/2024 07:10 PLATELET 385 x10/UL 150 - 450 Final EDT 07/30/2024 07:10 AUTOMATED MPV 7.3 fl 6.6 - 10.5 Final EDT DIFFERENTIAL 07/30/2024 07:10 NEUT % 59.4 % 46.0 - 76.0 Final EDT 07/30/2024 07:10 LYMPH % 30.9 % 20.0 - 45.0 Final EDT 07/30/2024 07:10 MONOS % 6.1 % 0.0 - 10.0 Final EDT 07/30/2024 07:10 EO % 3.5 % 0.0 - 7.0 Final EDT 07/30/2024 07:10 BASO % 0.2 % 0.0 - 2.0 Final EDT 07/30/2024 07:10 Lymph # 2.65 x10/UL 0.80 - 2.80 Final EDT 07/30/2024 07:10 Neut # 5.09 x10/UL 1.50 - 7.10 Final EDT 07/30/2024 07:10 [place] # 0.52 x10/UL 0.20 - 1.00 Final EDT 07/30/2024 07:10 EO # 0.30 x10/UL 0.00 - 0.50 Final EDT 3 of 31 Narrative Lab Test Result Reference Status Received Comments 07/30/2024 07:10 Baso # 0.02 x10/UL 0.00 - 0.10 Final EDT 07/30/2024 07:10 MANUAL DIFF N/A New Order EDT 07/30/2024 07:10 MORPHOLOGY N/A New Order EDT CMP with eGFR Final IDANIA: 07/30/2024 06:55:00 EDT MsgRcvd: 07/30/2024 08:13 EDT Lab Test Result Reference Status Received Comments COMPREHENSIVE 07/30/2024 CMP with eGFR Final METABOLIC 08:13 EDT PANEL 07/30/2024 SODIUM 140 mmol/l 136 - 145 Final 08:13 EDT 3.2 mmol/L 07/30/2024 POTASSIUM 3.5 - 5.1 Final Below low normal 08:13 EDT 07/30/2024 CHLORIDE 101 mmol/L 98 - 107 Final 08:13 EDT 07/30/2024 CO2 26.9 mmol/L 21.0 - 32.0 Final 08:13 EDT 163 mg/dl 07/30/2024 GLUCOSE Above high 74 - 106 Final 08:13 EDT normal 07/30/2024 BUN 17 mg/dl 7 - 18 Final 08:13 EDT 4 of Narrative Lab Test Result Reference Status Received Comments 07/30/2024 CREATININE 0.91 mg/dl 0.55 - 1.02 Final 08:13 EDT 07/30/2024 AST/SGOT 15 U/L 13 - 39 Final 08:13 EDT 07/30/2024 ALK PHOS 96 U/L 46 - 116 Final 08:13 EDT 07/30/2024 CALCIUM 8.6 mg/dl 8.5 - 10.1 Final 08:13 EDT TOTAL 07/30/2024 7.3 g/dl 6.4 - 8.2 Final PROTEIN 08:13 EDT 07/30/2024 ALBUMIN 3.6 g/dL 3.4 - 5.0 Final 08:13 EDT 07/30/2024 GLOBULIN 3.7 G/DL 1.5 - 3.8 Final 08:13 EDT 07/30/2024 A/G RATIO 1.0 0.9 - 1.6 Final 08:13 EDT 07/30/2024 TOTAL BILI 0.4 mg/dl 0.2 - 1.0 Final 08:13 EDT 07/30/2024 B/C RATIO 19 ratio 0 - 30 Final 08:13 EDT 07/30/2024 ALT/SGPT 20 U/L 16 - 63 Final 08:13 EDT 07/30/2024 ANION GAP 15 mmol/L 10 - 20 Final 08:13 EDT 07/30/2024 AGE 58 years Final 08:13 EDT 5 of 31 Narrative Lab Test Result Reference Status Received Comments 07/30/2024 eGFR >60 ML/MINUTE 60 - 999 Final 08:13 EDT ACCORDING TO THE NATIONAL KIDNEY DISEASE EDUCATION PROGRAM(NKDE), A NORMAL eGFR IS A VALUE GREATER THAN OR EQUAL TO 60 ML/MIN/1.73 SQ METERS. 07/30/2024 CHRONIC KIDNEY eGFR(AA) >60 ML/MINUTE 60 - 999 Final 08:13 EDT DISEASE: <60mL/MIN/1.73 SQ METERS KIDNEY FAILURE: <15mL/MIN/1.73 SQ METERS THIS TEST SHOULD ONLY BE (more content not included)... Normal [facility] ED SUPER BILLon 07-31-2024 ED SUPER BILL [address] [address] [phone] 07/30/2024 Patient: PARTHA BROWN Sex: Female : 1965 Age: 58y Facility Professional Category Item Description Code Code Quantity Fee Total Nurse/E/M EMERGENCY 619576 1 $0.00 $0.00 DEPT VISIT HIGH SEVERITYFUNCJ (56277-94) Nurse/IV/IM/Infusions Hydration initial 501114 1 $0.00 $0.00 ([id number]) Grand $0.00 Total Providers Belinda Cazares M.D. Chief Complaint DIZZINESS, WEAKNESS and NEAR-SYNCOPE. Principal Diagnosis Probable acute vertigo of peripheral origin: benign positional vertigo. benign postural peripheral vertigo (BPPV). 1 of 2 [facility] 2 of 2 [facility] ED VISIT SUMMARYon ED VISIT SUMMARY Visit Overview Visit Overview [address] [address] [address] [phone] 07/30/2024 Patient: PARTHA BROWN Sex: Female : 1965 Age: 58y 07/31/2024 10:50 PM EDT ED Arrival:06:35 07/30/2024 EDT Status:not Recent Travel:no Language:eng Adv Directive:No Isolation Status: Ethnicity:N Fall Risk:no risk Infectious Disease Exposure:no Measurements:5'7 / 170.2 Self-Harm Status:risk Sepsis Screen:negative cm 210.0 lb / 95.3 kg Chief Complaint:DIZZINESS, LIGHT HEADED, NEAR-SYNCOPE, VERTIGO, WEAKNESS, and (started 1 hour ago, room spinning, seeing stars felt like she was going to pass out felt clammy and nauseated, now slightly better, states she had cataract surgery this past .) ALLERGIES No Known Drug Allergies 1 of 4 Visit Overview HOME MEDICATIONS benazepril 20 mg tablet: 1 tablet once a day. escitalopram 5 mg tablet: 1 tablet once a day. hydrochlorothiazide 25 mg tablet: 1 once a day. ibuprofen 800 mg tablet: 1 as needed. labetalol 200 mg tablet: 1 tablet once a day. ofloxacin 0.3 % eye drops: 1 drop four times a day. PAST MEDICAL HISTORY / PROBLEMS Hypertension Immunizations: up-to-date See nurses notes PAST SURGICAL HISTORY Appendectomy Cataract Surgery Cholecystectomy Tubal Ligation SOCIAL HISTORY Smoking status: No ED COURSE MEDICATIONS GIVEN IN EMERGENCY DEPARTMENT 06:57 07/30/24 IV NS 0.9 % 1000 mL 999 mL/hr 06:58 07/30/24 Meclizine (Antivert) PO 25 mg 08:29 07/30/24 Potassium Chloride PO 40 mEq IV SITE INFORMATION INTAKE OUTPUT REASSESMENT (most recent) 2 of 4 Visit Overview 07:01 07/30/24. Ambulatory to room. Patient gowned. GENERAL / NEURO / PSYCH: Oriented X 4. Appears in distress. Alert. No alteration in mental status. Normal verbal response. Speech within normal limits. Mood/affect normal. The patient has weakness. No numbness. Normal gait. ( c/o sudden onset dizziness this morning around or before 6am today, room sping, nauseated felt syncopal.). No dysconjugate gaze. HEENT: No facial weakness. No nystagmus. Normal ear exam. No difficulty handling secretions. RESPIRATORY: Breath sounds within normal limits. Respirations not labored. CVS: No carotid bruit. Normal sinus rhythm noted. Cardiac rhythm: normal sinus rhythm. SKIN: Skin is warm and dry. VITAL SIGNS First Vitals Last Vitals Temp 06:45 07/30/24 98.0 F Temp 08:48 07/30/24 BP 06:45 07/30/24 161/89 BP 08:48 07/30/24 HR 06:45 07/30/24 76 HR 08:48 07/30/24 RR 06:45 07/30/24 16 RR 08:48 07/30/24 16 O2 Sat 06:45 07/30/24 94% O2 Sat 08:48 07/30/24 Pain 06:45 07/30/24 0 Pain 08:48 07/30/24 0 ETCO2 06:45 07/30/24 ETCO2 08:48 07/30/24 GCS 06:45 07/30/24 GCS 08:48 07/30/24 RTS 06:45 07/30/24 RTS 08:48 07/30/24 PROCEDURES NURSING INTERVENTIONS LABS / STUDIES LABS / STUDIES ORDERED BNP CBC w Diff Chest 1V CMP CT Brain wo Cont EKG - ED Flu Swab (Influenzae AAg) Lactate, Serum Rapid COVID (SARS) ANTIGEN TEST Troponin-I 3 of 4 Visit Overview TSH Urinalysis CLINICAL IMPRESSION PROBABLE ACUTE VERTIGO OF PERIPHERAL ORIGIN: BENIGN POSITIONAL VERTIGO 4 of 4 Normal [facility] ED VITALS FLOW SHEETon 07-31 ED VITALS FLOW SHEET Vitals Vital Sign Flow Sheet [facility] [address] [address] [phone] 07/30/2024 Patient: PARTHA BROWN Sex: Female : 1965 Age: 58y Measurements Wt: 95.3 kg, Ht/Bobby: 67.0 in, BMI: 32.89 Measured Time BP MAP HR RR O2Sat ETCO2 Temp Pain GCS RTS 08:48 07/30/2024 16 0 08:25 07/30/2024 124/67 90 70 08:17 07/30/2024 72 98% 08:07 07/30/2024 73 96% 08:02 07/30/2024 72 95% 07:57 07/30/2024 74 97% 07:55 07/30/2024 132/72 98 71 07:52 07/30/2024 72 95% 07:47 07/30/2024 71 98% 07:42 07/30/2024 74 97% 07:28 07/30/2024 156/82 106 78 07:27 07/30/2024 77 97% 07:27 07/30/2024 141/80 100 74 07:25 07/30/2024 139/78 101 73 1 of 2 Vitals Measured Time BP MAP HR RR O2Sat ETCO2 Temp Pain GCS RTS 07:25 07/30/2024 139/78 98 74 (Orthostatic lying) 07:27 07/30/2024 141/80 100 76 (Orthostatic sitting) 07:28 07/30/2024 156/82 107 78 (Orthostatic standing) 07:22 07/30/2024 74 95% 07:17 07/30/2024 75 97% 07:16 07/30/2024 144/79 114 73 06:45 07/30/2024 161/89 113 76 16 94% 98.0 F 0 2 of 2 Normal [facility] CBC + DIFFon 07-30-2024 Baso # 0.02 x10EE3/UL Normal 0.00 - 0.10 [facility] Comment on above: Performed By: #### 2 59887 #### [facility],[address] [place] [address] 18602 Basophils/100 WBC (Bld) 0.2 % Normal 0.0 - 2.0 [facility] Comment on above: Performed By: #### 2 17883 #### [facility],[address] [place] [address] 86865 CBC + DIFF Normal [facility] Comment on above: Result Comment: CBC- COMPLETE BLOOD COUNT Performed By: #### 2 14797 #### [facility],[address] [place] [address] 15281 EO # 0.30 x10EE3/UL Normal 0.00 - 0.50 [facility] Comment on above: Performed By: #### 2 66124 #### [facility],[address] [place] [address] 31062 Eosinophils/100 WBC (Bld) 3.5 % Normal 0.0 - 7.0 [facility] Comment on above: Performed By: #### 2 18874 #### [facility],[address] [place] [address] 64991 Erythrocyte distribution width (RBC) [Ratio] 13.8 % Normal 12.0 - 15.6 [facility] Comment on above: Performed By: #### 2 66874 #### [facility],[address] [place] [address] Hematocrit (Bld) [Volume fraction] 37.4 % Normal 34.0 - 46.0 [facility] Comment on above: Performed By: #### 2 19448 #### [facility],[address] [place] [address] Hemoglobin (Bld) [Mass/Vol] 12.9 g/dL Normal 12.0 - 16.0 [facility] Comment on above: Performed By: #### 2 96067 #### [facility],[address] [place] [address] Lymph # 2.65 x10EE3/UL Normal 0.80 - 2.80 [facility] Comment on above: Performed By: #### 2 74034 #### [facility],[address] [place] [address] Lymphocytes/100 WBC (Bld) 30.9 % Normal 20.0 - 45.0 [facility] Comment on above: Performed By: #### 2 89394 #### [facility],[address] [place] [address] MANUAL DIFF N/A Normal [facility] Comment on above: Performed By: #### 2 59797 #### [facility],[address] [place], [place] [id number] MCH (RBC) [Entitic mass] 29 pg Normal 27 - 33 [facility] Comment on above: Performed By: #### 2 86818 #### [facility],[address] [place], [place] [id number] MCHC 34 X10 3 Normal 32 - 36 [facility] Comment on above: Performed By: #### 2 01088 #### [facility],[address] [place], [place] [id number] MCV (RBC) [Entitic vol] 83 fL Normal 80 - 99 [facility] Comment on above: Performed By: #### 2 73480 #### [facility],[address] [place] [address] 90033 [place] # 0.52 x10EE3/UL Normal 0.20 - 1.00 [facility] Comment on above: Performed By: #### 2 18473 #### [facility],[address] [place] [address] 87101 MONOS % 6.1 % Normal 0.0 - 10.0 [facility] Comment on above: Performed By: #### 2 24624 #### [facility],[address] [place] [address] Morphology Matthew (Bld) [Interp] N/A Normal [facility] Comment on above: Performed By: #### 2 93417 #### [facility],[address] [place] [address] 04112 Neut # 5.09 x10EE3/UL Normal 1.50 - 7.10 [facility] Comment on above: Performed By: #### 2 19208 #### [facility],[address] [place] [address] 95700 Neutrophils/100 WBC (Bld) 59.4 % Normal 46.0 - 76.0 [facility] Comment on above: Performed By: #### 2 00019 #### [facility],[address] [place] [address] 91885 PLATELET 385 x10EE3/UL Normal 150 - 450 [facility] Comment on above: Performed By: #### 2 34537 #### [facility],[address] [place] [address] 72961 Platelet mean volume (Bld) [Entitic vol] 7.3 fL Normal 6.6 - 10.5 [facility] Comment on above: Result Comment: AUTO MATED DIFFERENTIAL Performed By: #### 2 86542 #### [facility],[address] [place] [address] 80309 RBC 4.50 x 10EE6/UL Normal 4.10 - 5.30 [facility] Comment on above: Performed By: #### 2 33459 #### [facility],[address] [place] [address] 20932 WBC 8.6 x 10EE3/UL Normal 4.5 - 10.8 [facility] Comment on above: Performed By: #### 2 81956 #### [facility],[address] [place] [address] 63501 CHEST 1 VIEWon 07-30-2024 CHEST 1 VIEW [place] [address] Patient: PARTHA BROWN Phone#: : 1965 Age: 58 Gender: F Pt. Type: ER Account: [id number] Location: [facility] Ordering: MISSY MEAD Exam Date: 07/30/2024/7:13 Family Phys: ALEXANDREA ECHOLS Charge Code: 819143 Physician: [place] Order #: [id number] Dose#: PROCEDURE: X-RAY CHEST 1 VIEW COMPARISON: None. INDICATIONS: Weakness. FINDINGS: LUNGS: Normal. No significant pulmonary parenchymal abnormalities. VASCULATURE: Normal. Unremarkable pulmonary vasculature. CARDIAC: Normal. No cardiac silhouette abnormality or cardiomegaly. MEDIASTINUM: Normal. No visible mass or adenopathy. PLEURA: Normal. No effusion or pleural thickening. BONES: Normal. No fracture or visible bony lesion. OTHER: Negative. CONCLUSION: No acute disease. Dictated by: Meggan Gutierrez MD on 07/30/2024 at 8:41 Approved by: Meggan Gutierrez MD on 07/30/2024 at 8:42 Normal [facility] CMP with eGFRon 07-30-2024 AGE 58 years Normal [facility] Comment on above: Performed By: #### 2 55294 #### [facility],[address] [place] [address] 93327 Albumin [Mass/Vol] 3.6 g/dL Normal 3.4 - 5.0 [facility] Comment on above: Performed By: #### 2 81976 #### [facility],[address] [place] [address] 54154 Albumin/Globulin [Mass ratio] 1.0 {ratio} Normal 0.9 - 1.6 [facility] Comment on above: Performed By: #### 2 90293 #### [facility],[address] [place] [address] 00931 ALK PHOS 96 U/L Normal 46 - 116 [facility] Comment on above: Performed By: #### 2 74693 #### [facility],[address] [place] [address] 36091 ALT [Catalytic activity/Vol] 20 U/L Normal 16 - 63 [facility] Comment on above: Performed By: #### 2 88663 #### [facility],[address] [place] [address] 87468 Anion gap [Moles/Vol] 15 mmol/L Normal 10 - 20 [facility] Comment on above: Performed By: #### 2 33836 #### [facility],[address] [place] [address] 57409 AST [Catalytic activity/Vol] 15 U/L Normal 13 - 39 [facility] Comment on above: Performed By: #### 2 76360 #### [facility],[address] [place] [address] 76776 B/C RATIO 19 ratio Normal 0 - 30 [facility] Comment on above: Performed By: #### 2 38565 #### [facility],[address] [place] [address] 94480 Bilirubin [Mass/Vol] 0.4 mg/dL Normal 0.2 - 1.0 [facility] Comment on above: Performed By: #### 2 00702 #### [facility],[address] [place] [address] 34235 Calcium [Mass/Vol] 8.6 mg/dL Normal 8.5 - 10.1 [facility] Comment on above: Performed By: #### 2 06467 #### [facility],[address] [place], [place] [address] Chloride [Moles/Vol] 101 mmol/L Normal 98 - 107 [facility] Comment on above: Performed By: #### 2 89186 #### [facility],[address] [place] [address] 89631 CMP with eGFR Normal [facility] Comment on above: Result Comment: COMP REHENSIVE METABOLIC PANEL Performed By: #### 2 08096 #### [facility],[address] [place] [address] CO2 [Moles/Vol] 26.9 mmol/L Normal 21.0 - 32.0 [facility] Comment on above: Performed By: #### 2 50428 #### [facility],[address] [place] [address] Creatinine [Mass/Vol] 0.91 mg/dL Normal 0.55 - 1.02 [facility] Comment on above: Performed By: #### 2 41286 #### [facility],[address] [place] [address] GFR/1.73 sq M.predicted among non-blacks MDRD (S/P/Bld) [Vol rate/Area] mL/min/{1.73_m2} Normal 60 - 999 [facility] Comment on above: Performed By: #### 2 12784 #### [facility],[address] [place] [address] Result Comment: ACCO RDING TO THE NATIONAL KIDNEY DISEASE EDUCATION PROGRAM(NKDE), A NORMAL eGFR IS A VALUE GREATER THAN OR EQUAL TO 60 ML/MIN/1.73 SQ METERS. CHRONIC KIDNEY DISEASE: <60mL/MIN/1.73 SQ METERS KIDNEY FAILURE: <15mL/MIN/1.73 SQ METERS THIS TEST SHOULD ONLY BE USED FOR PATIENTS 18 YEARS OF AGE AND OLDER. Globulin (S) [Mass/Vol] 3.7 g/dL Normal 1.5 - 3.8 [facility] Comment on above: Performed By: #### 2 79110 #### [facility],[address] [place] [address] 54890 Glucose [Mass/Vol] 163 mg/dL High 74 - 106 [facility] Comment on above: Performed By: #### 2 62493 #### [facility],[address] [place] [address] 58685 Potassium [Moles/Vol] 3.2 mmol/L Low 3.5 - 5.1 [facility] Comment on above: Performed By: #### 2 85437 #### [facility],[address] [place] [address] 17602 Protein [Mass/Vol] 7.3 g/dL Normal 6.4 - 8.2 [facility] Comment on above: Performed By: #### 2 12067 #### [facility],[address] [place], [place] [address] Sodium [Moles/Vol] 140 mmol/L Normal 136 - 145 [facility] Comment on above: Performed By: #### 2 24334 #### [facility],[address] [place] [address] 21377 Urea nitrogen [Mass/Vol] 17 mg/dL Normal 7 - 18 [facility] Comment on above: Performed By: #### 2 99812 #### [facility],[address] [place] [address] 29808 CORONAVIRUS (SARS) ANTIGEN T ESTon 07-30-2024 EXTERNAL QC DONE? YES Normal [facility] Comment on above: Performed By: #### 2 60480 #### [facility],[address] [place] [address] 69240 INTERNAL CONTROL PASS Normal [facility] Comment on above: Performed By: #### 2 73395 #### [facility],[address] [place] [address] 63588 SARS ANTIGEN Negative Normal NORMAL: NEGATIVE [facility] Comment on above: Performed By: #### 2 95964 #### [facility],[address] [place] [address] 63641 SEND TO ? NO Normal [facility] Comment on above: Result Comment: SARS -CoV-2 THIS TEST IS BEING USED UNDER THE FDA EUA PROCEDURE. THIS ASSAY HAS BEEN VALIDATED AT [facility] FOR USE WITH NASAL AND NASOPHARYNGEAL SWAB SPECIMENS. INTERPRETIVE DATA TEST RESULTS SHOULD ALWAYS BE CONSIDERED IN THE CONTEXT OF CLINICAL OBSERVATIONS AND EPIDEMIOLOGICAL DATA IN MAKING FINAL DIAGNOSIS AND PATIENT MANAGEMENT DECISIONS. PATIENT MANAGEMENT SHOULD FOLLOW CURRENT CDC GUIDELINES. THE ULI SARS ANTIGEN ELISA DOES NOT DIFFERENTIATE BETWEEN SARS-CoV & SARS-CoV-2. A POSITIVE TEST RESULT INDICATES THE PRESENCE OF SARS-CoV-2 NUCLEOCAPSID PROTEIN ANTIGEN, AND THE PATIENT IS INFECTED WITH THE VIRUS AND PRESUMED TO BE CONTAGIOUS. A NEGATIVE TEST RESULT FOR THIS TEST MEANS THAT SARS-CoV-2 NUCLEOCAPSID PROTEIN ANTIGEN WAS NOT PRESENT IN THE SPECIMEN ABOVE THE LIMIT OF DETECTION. HOWEVER, A NEGATIVE RESULT DOES NOT RULE OUT COVID-19 AND SHOULD NOT BE USED THE SOLE BASIS FOR TREATMENT OR PATIENT MANAGEMENT DECISIONS. A NEGATIVE RESULT DOES NOT EXCLUDE THE POSSIBILITY OF COVID-19. NEGATIVE RESULTS, FROM PATIENTS WITH SYMPTOM ONSET BEYOND FIVE DAYS, SHOULD BE TREATED PRESUMPTIVE AND CONFIRMATION WITH A MOLECULAR ASSAY, IF NECESSARY, FOR PATIENT MANAGEMENT, MAY BE PERFORMED. WHEN DIAGNOSTIC TESTING IS NEGATIVE, THE POSSIBLILTY OF A FALSE NEGATIVE RESULT SHOULD BE CONSIDERED IN THE CONTEXT OF A PATIENT'S RECENT EXPOSURES AND THE PRESENCE OF CLINICAL SIGNS AND SYMPTOMS CONSISTENT WITH COVID-19. THE POSSIBILITY OF A FALSE NEGATIVE RESULT SHOULD ESPECIALLY BE CONSIDERED IF THE PATIENT'S RECENT EXPOSURES OR CLINICAL PRESENTATION INDICATE THAT COVID-19 IS LIKELY, AND DIAGNOSTIC TESTS FOR OTHER CAUSES OF ILLNESS (e.g., OTHER RESPIRATORY ILLNESS) ARE NEGATIVE. IF COVID-19 IS STILL SUSPECTED BASED ON EXPOSURE HISTORY TOGETHER WITH OTHER CLINICAL FINDINGS, RE-TESTING SHOULD BE CONSIDERED BY HEALTHCARE PROVIDERS IN CONSULTATION WITH PUBLIC HEALTH AUTHORITIES. Performed By: #### 2 44492 #### [facility],[address] [place] [address] BRAIN W/O CONTRASTon 04-0 CT BRAIN W/O CONTRAST [place] [address] Patient: PARTHA BROWN Phone#: : 1965 Age: 58 Gender: F Pt. Type: ER Account: [id number] Location: 052 Ordering: MISSY MEAD Exam Date: 07/30/2024/7:07 Family Phys: ALEXANDREA ECHOLS Charge Code: [id number] Physician: [place] Order #: [id number] Dose#: [id number] PROCEDURE: CT BRAIN WITHOUT CONTRAST COMPARISON: None. INDICATIONS: Weakness. TECHNIQUE: CT images were obtained without contrast material. All CT scans at this facility use dose modulation, iterative reconstruction, and/or weight based dosing when appropriate to reduce radiation dose to as low as reasonably achievable. IV CONTRAST: No IV contrast used,0ml TOTAL DOSE: 52.3 CTDIvol(mGy) FINDINGS: CEREBRUM: No edema, hemorrhage, mass, acute infarction, or inappropriate atrophy. CEREBELLUM: No edema, hemorrhage, mass, acute infarction, or inappropriate atrophy. BRAINSTEM: No edema, hemorrhage, mass, acute infarction, or inappropriate atrophy. CSF SPACES: Ventricles, cisterns, and sulci are appropriate for age. No hydrocephalus, subarachnoid hemorrhage, or mass. SKULL: No mass or other significant visible lesion. SINUSES: Limited views demonstrate no significant mucosal thickening or fluid. ORBITS: Limited views are unremarkable. OTHER: Negative. CONCLUSION: 1. There is no evidence of acute intracranial abnormality. Dictated by: Meggan Gutierrez MD on 07/30/2024 at 9:37 Approved by: Meggan Gutierrez MD on 07/30/2024 at 9:38 Normal [facility] INFLUENZA VIRUS RAPID A/Bon 07-30-2024 INFLUENZA VIRUS RAPID A/B INFLUENZA A NEGATIVE INFLUENZA B NEGATIVE INTERNAL NEG QC PASS INTERNAL POS QC PASS EXTERNAL QC DONE? YES SEND TO IC? NO A NEGATIVE TEST RESULT DOES NOT EXCLUDE INFECTION WITH INFLUENZA A OR B. THEREFORE, THE RESULTS OBTAINED FROM THIS FLU TEST SHOULD BE USED IN CONJUCTION WITH CLINICAL FINDINGS TO MAKE AN ACCURATE DIAGNOSIS. A POSITIVE RESULT DOES NOT RULE OUT CO-INFECTIONS WITH OTHER PATHOGENS OR IDENTIFY ANY SPECIFIC INFLUENZA A VIRUS SUBTYPE.CO-INFECTION WITH INFLUENZA A AND B IS RARE. IT IS RECOMMENDED THAT DUAL POSITIVE RESULTS BE CONFIRMED BY VIRAL CULTURE OR AN FDA-CLEARED INFLUENZA A AND B MOLECULAR ASSAY. INDIVIDUALS WHO HAVE RECEIVED NASALLY ADMINISTERED INFLUENZA A VACCINE MAY TEST POSITIVE IN COMMERCIALLY AVAILABLE INFLUENZA RAPID DIAGNOSTIC TESTS FOR UP TO THREE DAYS. RESULT CRITICAL? NO Normal [facility] Comment on above: Performed By: #### 2 09131 #### [facility],[address] [place] [address] LACTATEon 07-30-2024 Lactate [Moles/Vol] 1.6 mmol/L Normal 0.4 - 2.0 [facility] Comment on above: Performed By: #### 2 95000 #### [facility],[address] [place] [address] NT-proBNPon 07-30-2024 Natriuretic peptide B (Bld) [Mass/Vol] 15 pg/mL Normal 0 - 125 [facility] Comment on above: Performed By: #### 2 56710 #### [facility],[address] [place] [address] TROPONINon 07-30-2024 HS TROPONIN <4.0 Normal 0.0 - 51.4 [facility] Comment on above: Performed By: #### 2 34892 #### [facility],[address] [place] [address] TSHon 07-30-2024 TSH Qn 1.81 m[IU]/L Normal 0.35 - 3.74 [facility] Comment on above: Performed By: #### 2 00197 #### [facility],[address] [place] [address] URINALYSISon 07-30-2024 Bilirubin Ql (U) Negative Normal NORMAL: NEGATIVE [facility] Comment on above: Performed By: #### 2 51754 #### [facility],[address] [place] [address] Clarity (U) clear Normal NORMAL: CLEAR [facility] Comment on above: Performed By: #### 2 09541 #### [facility],[address],[place] [address] Color (U) yellow Normal NORMAL: YELLOW [facility] Comment on above: Performed By: #### 2 72586 #### [facility],[address] [place] [address] 43380 Glucose Ql (U) NORM Normal NORMAL: NORMAL [facility] Comment on above: Performed By: #### 2 62646 #### [facility],[address] [place] [address] 23045 Hemoglobin Ql (U) Negative Normal NORMAL: NEGATIVE [facility] Comment on above: Performed By: #### 2 35693 #### [facility],[address] [place] [address] 35722 Ketone Negative Normal NORMAL: NEGATIVE [facility] Comment on above: Performed By: #### 2 13085 #### [facility],[address] [place] [address] 10501 Leukocytes Negative Normal NORMAL: NEGATIVE [facility] Comment on above: Performed By: #### 2 82396 #### [facility],[address] [place] [address] 15681 Nitrite Ql (U) Negative Normal NORMAL: NEGATIVE [facility] Comment on above: Performed By: #### 2 93845 #### [facility],[address] [place] [address] 80068 pH (U) 7 [pH] Normal NORMAL: 5.0-8.0 [facility] Comment on above: Performed By: #### 2 19879 #### [facility],[address] [place] [address] 60129 Protein Ql (U) Negative Normal NORMAL: NEGATIVE [facility] Comment on above: Performed By: #### 2 99400 #### [facility],[address] [place] [address] 52101 Sp [place] 1.015 Normal NORMAL: 1.010-1.030 [facility] Comment on above: Performed By: #### 2 59968 #### [facility],[address] [place] [address] 26883 Specimen Type UNSPECIFIED Normal [facility] Comment on above: Performed By: #### 2 99649 #### [facility],[address] [place], [place] [address] Urinalysis dipstick W Reflex Microscopic panel (U) NOT INDICATED Normal [facility] Comment on above: Performed By: #### 2 59579 #### [facility],[address] [place], [place] [address] Urobilinog NORM Normal NORMAL: NORMAL [facility] Comment on above: Performed By: #### 2 70336 #### [facility],[address] [place] [address] URINALYSISon 04-29-2024 Amorphous NONE Normal [facility] Comment on above: Performed By: #### 2 17284 #### [facility],[address] [place] [address] Bacteria 2+ Normal [facility] Comment on above: Performed By: #### 2 13909 #### [facility],[address] [place], [place] [address] Bilirubin Ql (U) 3 Abnormal NORMAL: NEGATIVE [facility] Comment on above: Performed By: #### 2 82095 #### [facility],[address] [place], [place] [id number] Casts NONE Normal [facility] Comment on above: Performed By: #### 2 76551 #### [facility],[address] [place] [address] 47851 Clarity (U) clear Normal NORMAL: CLEAR [facility] Comment on above: Performed By: #### 2 33585 #### [facility],[address] [place] [address] 32505 Color (U) ORANGE Normal NORMAL: YELLOW [facility] Comment on above: Performed By: #### 2 49482 #### [facility],[address] [place] [address] 85137 Crystals LM Nom (Urine sed) NONE Normal [facility] Comment on above: Performed By: #### 2 84665 #### [facility],[address] [place] [address] 30015 Epi Cells FEW Normal [facility] Comment on above: Performed By: #### 2 43109 #### [facility],[address] [place], [place] [phone] Glucose Ql (U) NORM Normal NORMAL: NORMAL [facility] Comment on above: Performed By: #### 2 41113 #### [facility],[address] [place], [place] [id number] Hemoglobin Ql (U) Negative Normal NORMAL: NEGATIVE [facility] Comment on above: Performed By: #### 2 05979 #### [facility],[address] [place], [place] [id number] Ketone Negative Normal NORMAL: NEGATIVE [facility] Comment on above: Performed By: #### 2 85586 #### [facility],[address] [place] [address] 78978 Leukocytes 25 Abnormal NORMAL: NEGATIVE [facility] Comment on above: Performed By: #### 2 42864 #### [facility],[address] [place] [address] 80020 Mucous NONE Normal [facility] Comment on above: Performed By: #### 2 02472 #### [facility],[address] [place] [address] 50894 Nitrite Ql (U) Positive Normal NORMAL: NEGATIVE [facility] Comment on above: Performed By: #### 2 [id number] #### [facility],[address] [place], [place] [id number] pH (U) 6 [pH] Normal NORMAL: 5.0-8.0 [facility] Comment on above: Performed By: #### 2 [id number] #### [facility],[address] [place] [address] Protein Ql (U) 15 Abnormal NORMAL: NEGATIVE [facility] Comment on above: Performed By: #### 2 [id number] #### [facility],[address] [place] [address] Rbc NONE Normal 0-3/hpf [facility] Comment on above: Performed By: #### 2 [id number] #### [facility],[address] [place] [address] Sp [place] 1.015 Normal NORMAL: 1.010-1.030 [facility] Comment on above: Performed By: #### 2 [id number] #### [facility],[address] [place] [address] Specimen Type R Normal [facility] Comment on above: Performed By: #### 2 [id number] #### [facility],[address] [place] [address] Urinalysis dipstick W Reflex Microscopic panel (U) SEE BELOW Normal [facility] Comment on above: Result Comment: MICR OSCOPIC Performed By: #### 2 [id number] #### [facility],[address] [place] [address] Urobilinog 8 Abnormal NORMAL: NORMAL [facility] Comment on above: Performed By: #### 2 [id number] #### [facility],[address] [place] [address] Wbc 11-15 Normal 0-5/hpf [facility] Comment on above: Performed By: #### 2 [id number] #### [facility],[address] [place] [address] Yeast NONE Normal [facility] Comment on above: Performed By: #### 2 [id number] #### [facility],[address] [place] [address] 3D MAMM BILAT SCREENon 02-08 3D MAMM BILAT SCREEN [place] [address] Patient: PARTHA BROWN Phone#: : 1965 Age: 58 Gender: F Pt. Type: Out Account: [id number] Location: [facility] Ordering: ALEXANDREA ECHOLS Exam Date: 02/09/2024/13:37 Family Phys: Charge Code: [id number] Physician: [place] Order #: [id number] Dose#: PROCEDURE: BILATERAL SCREENING BREAST TOMOSYNTHESIS MAMMOGRAM WITH CAD COMPARISON: [facility], BILAT SCREENING, 02/17/2016, 16:44. [facility], BILAT SCREENING, 03/02/2017, 9:15. INDICATIONS: Screening. BREAST COMPOSITION: Scattered areas fibroglandular density. FINDINGS: DIAGNOSTIC CATEGORY 1--NEGATIVE: RIGHT BREAST: No significant suspicious finding. No significant change has occurred. LEFT BREAST: No significant suspicious finding. No significant change has occurred. RECOMMENDATIONS: ROUTINE MAMMOGRAM AND CLINICAL EVALUATION IN 12 MONTHS. PLEASE NOTE: A NORMAL MAMMOGRAM DOES NOT EXCLUDE THE POSSIBILITY OF BREAST CANCER. A CLINICALLY SUSPICIOUS PALPABLE LUMP SHOULD BE BIOPSIED. THIS FACILITY UTILIZES A REMINDER SYSTEM TO ENSURE THAT ALL PATIENTS RECEIVE REMINDER LETTERS FOR APPOINTMENTS. THIS INCLUDES REMINDERS FOR ROUTINE MAMMOGRAMS, DIAGNOSITC MAMMOGRAMS, OR OTHER BREAST IMAGING INTERVENTIONS WHEN APPROPRIATE. THIS PATIENT WILL BE PLACED IN THE APPROPRIATE REMINDER SYSTEM. Dictated by: Chela Neumann MD on 02/09/2024 at 14:24 Approved by: Chela Neumann MD on 02/09/2024 at 14:[address] [facility] [address] CORONARY ANGIOGRAPHY W+W/ O CONTRASTon 09-07-2023 CT CORONARY ANGIOGRAPHY W+W/O CONTRAST ORIGINAL CT CORONARY ANGIOGRAPHY W+W/O CONTRAST PATIENT NAME:PARTHA BROWN : 1965 GENDER: Female ORDERING PROVIDER:MELISSA DARLING CLINICAL STATEMENT: chest pain Pt claims off/on CP x 3 months,Recent stress test PATIENT NAME:PARTHA BROWN : 1965 GENDER: Female ORDERING PROVIDER:MELISSA DARLING CLINICAL STATEMENT: chest pain Pt claims off/on CP x 3 months,Recent stress test. TECHNIQUE: 1. Noncontrast CT of the heart was obtained for calcium scoring. 2. CTA with (not provided, usually ~100) c.c Omnipaque 350 IV contrast performed using prospective ECG gating about 1 cm above the AV to the diaphragm. FOV is very small to best evaluate the coronary arteries. Non-coronary chest anatomy is evaluated by Radiologist (Split read). Cumulative dose is mSv 3. 3D postprocessing: MPR, MIP, +/- CPR, and volume rendering were performed. 4. This exam was performed according to our departmental dose optimization program, and includes the following measures where applicable: automated exposure control, adjustment of the mAs and/or kVp according to patient size and/or exam, and an iterative reconstruction algorithm. 5. This report adheres to SCCT / ACR / NASCI 2016 expert consensus document entitled, CAD-RADS(TM) Coronary Artery Disease - Reporting and Data System. MEDS: PO metoprolol (mg): \X09\None IV metoprolol (mg): \X09\None Nitroglycerin (mg): \X09\0.4 SL Cardizem: 10mg IV COMPLICATIONS: None ACQUISITION HR (bpm): \X09\70, regular rhythm. TECHNICAL QUALITY: \X09\Good with minor artifact but good diagnostic quality. LIMITATIONS: \[id number]\None Abbreviations: LM: left main, RCA: right coronary artery, PDA: posterior descending artery, PLB: posterolateral branch, AM: acute marginal, LAD: left anterior descending, LCx: left circumflex artery, OM: obtuse marginal, Dx: diagonal, D1: first diagonal, D2: second diagonal, HR: heart rate, RI: ramus intermedius, PA: pulmonary artery FINDINGS: COMPARISON: None Most of the non-coronary chest anatomy is excluded in the FOV. CARDIAC FINDINGS: NON-CORONARY HEART: \X0909\Not enlarged. PERICARDIUM:\X09\Conto ur preserved. No effusion. No thickening. No calcifications. AV: \[id number]\Tricuspid. No thickening. No calcifications. MV: \[id number]\No thickening. No calcifications. CORONARY CALCIUM SCORING AGATSTON SCORE \X09\LM:\X09\0 \X09\LAD:\X09\0 \X09\LCx:\X09\0 \X09\RCA:\X09\0 \X09\TOTAL: 0 DOMINANCE:\X09\Right ANATOMY:\X09\Normal origin and course. LM originates from L coronary sinus and RCA originates from R coronary sinus. LM gives rise to the LAD and LCx. . The LAD has diagonals. The LCX has obtuse marginals and PDA and left posterolateral branches. The RCA gives rise to acute marginals, PDA and right posterolateral branches. Coronary CTA interpretation utilizes diagonal branches to segment the LAD (prox, mid, distal) rather than the septal branches (as used on conventional angiography) as the latter are too small to visualize on CTA consistently. Left main: Normal. LAD and diagonal branches: Cannot rule out obstructive mid-LAD disease (likely artifact given high HR). Left circumflex and obtuse marginal branches: Mild luminal irregularities. Right coronary artery, PDA, and posterior lateral branches: Mild luminal irregularities. Ramus Intermedius: N/A NON-CARDIAC FINDINGS: See separate report from Radiology. IMPRESSION: 1. Noncardiac findings were independently reported by Radiologist. See Radiologist interpretation under Noncardiac findings. 2. Technically difficult study (HR 70) 3. Cannot rule out obstructive mid-LAD disease, however given high HR and no calcium, artifact is certainly possible. 4. No obstructive disease of left main, RCA, Lcx. 5. Agatston score: 0. CAD-RADS 0 Degree of maximal coronary stenosis = 0% (No plaque or stenosis) Interpretation = Documented absence of CAD Recommendation = None CAD-RADS 1 Degree of Maximal Coronary Stenosis = 1-24% - Minimal Stenosis or plaque with no stenosis Interpretation = Minimal non-obstructive CAD Recommendation = None CAD-RADS 2 Degree of Maximal Coronary Stenosis = 25-49% - Mild stenosis Interpretation = Minimal non-obstructive CAD Recommendation = Consider risk modification (aspirin, statin therapy, life style changes etc.,) CAD-RADS 3 Degree of Maximal Coronary Stenosis = 50-69% stenosis Interpretation = Moderate Stenosis Recommendation = Consider functional assessment (e.g., stress echo, nuclear stress test etc.,)AND Consider risk modification (aspirin, statin therapy, life style changes etc.,) CAD-RADS 4 A Degree of Maximal Coronary Stenosis = 70-99% stenosis Interpretation = Severe stenosis Recommendation = Consider cardiac catheterization OR functional assessment (e.g., stress echo, nuclear stress test etc.,) AND Consider risk modification (aspirin, statin therapy, life style changes etc.,) (more content not included)... [facility] ([place]) CT CORONARY EXTRACARDIACon 0 08-28-2023 CT CORONARY EXTRACARDIAC ORIGINAL EXAMINATION: CT THORAX WITH CONTRAST EXTRACARDIAC 08/28/2023 10:03 am TECHNIQUE: CT of the chest with the administration of intravenous contrast. Multiplanar reformatted images are provided for review. Automated exposure control, iterative reconstruction, and/or weight based adjustment of the mA/kV was utilized to reduce the radiation dose to as low as reasonably achievable. Cardiac images were obtained and reported separately in a report from cardiology. COMPARISON: None. HISTORY: ORDERING SYSTEM PROVIDED HISTORY: Reason for Exam: chest pain Pt claims off/on CP x 3 months,Recent stress test FINDINGS: Mediastinum: Unremarkable. Lungs/pleura: There are scattered tiny nodules in both lungs measuring 3 mm or LEs. There is mild linear atelectasis in the right lower lobe and lingula. Upper Abdomen: Unremarkable. Soft Tissues/Bones: Unremarkable. IMPRESSION: Scattered tiny lung nodules. No follow-up is recommended per Fleischner society guidelines unless the patient is high risk in which case an optional follow-up CT may be obtained in 12 months. Interpreted by: Michael Jackson Preliminary Report By: Michael Jackson Electronically signed By Michael Jackson Dictated Date: 08/28/2023 3:24:08 PM Prelim Date: 08/28/2023 3:27:19 PM Sign Date: 08/28/2023 3:27:19 PM Ordering Provider: MELISSA DARLING [facility] ([place]) Vital Signs Date Time Vital Sign Value Performing Clinician Livan doty 01-31-2025 09:52-0400 Body height 170.81 cm Alexandrea REYES Work Phone: [facility] 01-31-2025 09:52-0400 Body mass index (BMI) [Ratio] 34.9 kg/m2 Alexandrea REYES Work Phone: [facility] 01-31-2025 09:52-0400 Body weight 102.05 kg Alexandrea MARIEC Work Phone: [facility] 11-12-2024 15:17-0400 Diastolic blood pressure 61 mm[Hg] Magaly Alba DO Work Phone: [facility] 11-12-2024 15:17-0400 Heart rate 83 /min Magaly Alba DO Work Phone: [facility] 11-12-2024 15:17-0400 SaO2% (BldA) [Mass fraction] 95 % Magaly Alba DO Work Phone: [facility] 11-12-2024 15:17-0400 Systolic blood pressure 99 mm[Hg] Magaly Alba DO Work Phone: [facility] 11-08-2024 15:10-0400 Body height 170.81 cm Alexandrea Echols NP-C Work Phone: [facility] 11-08-2024 15:10-0400 Body mass index (BMI) [Ratio] 34.2 kg/m2 Alexandrea Echols NP-C Work Phone: [facility] 11-08-2024 15:10-0400 Body weight 99.79 kg Alexandrea Echols NP-C Work Phone: [facility] 08-28-2023 10:53-0400 Diastolic blood pressure 76 mm[Hg] MELISSA DARLING MD [facility] 08-28-2023 10:53-0400 Heart rate 82 /min MELISSA DARLING MD [facility] 08-28-2023 10:53-0400 Respiratory rate 18 /min MELISSA DARLING MD [facility] 08-28-2023 10:53-0400 Systolic blood pressure 132 mm[Hg] MELISSA DARLING MD [facility] 08-28-2023 10:49-0400 Diastolic Blood Pressure Non-Invasive 76 mm[Hg] MELISSA DARLING MD [facility] 08-28-2023 10:49-0400 Heart rate 82 /min MELISSA DARLING MD [address] [place] [address] 08-28-2023 10:49-0400 Respiratory rate 18 /min MELISSA DARLING MD [address] [place] [address] 08-28-2023 10:49-0400 Systolic Blood Pressure Non-Invasive 132 mm[Hg] MELISSA DARLING MD [address] [place] [address] 08-28-2023 10:31-0400 Diastolic Blood Pressure Non-Invasive 73 mm[Hg] MELISSA DARLING MD [address] [place] [address] 08-28-2023 10:31-0400 Heart rate 76 /min MELISSA DARLING MD [address] [place] [address] 08-28-2023 10:31-0400 Systolic Blood Pressure Non-Invasive 134 mm[Hg] MELISSA DARLING MD [address] [place] [address] 08-28-2023 10:28-0400 Diastolic Blood Pressure Non-Invasive 82 mm[Hg] MELISSA DARLING MD [address] [place] [address] 08-28-2023 10:28-0400 Heart rate 76 /min MELISSA DARLING MD [address] [place] [address] 08-28-2023 10:28-0400 Respiratory rate 18 /min MELISSA DARLING MD [address] [place] [address] 08-28-2023 10:28-0400 Systolic Blood Pressure Non-Invasive 148 mm[Hg] MELISSA DARLING MD [address] [place] [address] 08-28-2023 08:41-0400 Blood Pressure Cuff Size MELISSA DARLING MD [address] [place] [address] 08-28-2023 08:41-0400 Blood Pressure Location MELISSA DARLING MD [address] [place] [address] 08-28-2023 08:41-0400 Blood Pressure Method MELISSA DARLING MD [address] [place] [address] 08-28-2023 08:41-0400 Body temperature 97.7 [degF] MELISSA DARLING MD [facility] 08-25-2023 14:35-0400 Body height 170.2 cm MELISSA DARLING MD [facility] 08-25-2023 14:350400 Body weight 100 kg MELISSA DARLING MD [facility] 08-25-2023 14:35-0400 Body weight 34.52 kg/m2 MELISSA DARLING MD [facility] Encounters Encounter Date Encounter Type Care Provider Facility Start: 03-04-2025 ambulatory Paris Cortes Facility:[facility] Start: 02-17-2025 End: 02-17-2025 ambulatory Alexandrea Echols NP Facility:[facility] Start: 02-07-2025 End: 02-07-2025 ambulatory Paris Cortes Facility:[facility] Start: 02-05-2025 End: 02-05-2025 ambulatory ALEXANDREA ECHOLS [facility] Start: 01-31-2025 End: 01-31-2025 Patient encounter procedure Paris Cortes [facility] Work Phone: Start: 01-31-2025 End: 01-31-2025 ambulatory Alexandrea REYES Work Phone: [facility] Start: 11-21-2024 End: 01-02-2025 ambulatory PARIS CORTES [facility] Start: 11-12-2024 End: 11-12-2024 Patient encounter procedure Magaly Alba DO Work Phone: Vascular Surgery Comment on above: Pain in both lower e xtremities (Primary Dx) Start: 11-12-2024 End: 11-12-2024 ambulatory MAGALY ALBA Facility:[facility] Start: 11-08-2024 End: 11-08-[address] Linus Laurent MD -[facility] Start: 11-08-2024 End: 11-08-2024 ambulatory Alexandrea MARIEC Work Phone: -[facility] Start: 10-21-2024 End: 10-21-2024 ambulatory ALEXANDREA MEHTA [facility] Start: 08-26-2024 End: 08-26-2024 ambulatory ALEXANDREA MEHTA [facility] Start: 08-20-2024 End: 08-20-2024 ambulatory ALEXANDREA DIALS SUPERVISOR [facility] Start: 07-30-2024 End: 07-30-2024 Emergency department patient visit ALEXANDREA MEHTA [facility] Start: 04-29-2024 End: 04-29-2024 ambulatory ALEXANDREA MEHTA [facility] Start: 02-09-2024 End: 02-09-2024 ambulatory ALEXANDREA MEHTA [facility] Start: 08-28-2023 End: 08-29-2023 ambulatory MELISSA DARLING MD Facility:A Start: 08-28-2023 End: 08-28-2023 Patient encounter procedure MELISSA DARLING MD [facility] Start: 06-26-2023 ambulatory MELISSA DARLING MD Fa cility:A Procedures Date Procedure Procedure Detail Performing Clinician Start: 01-31-2025 X-ray of cervical spine Alexandrea REYES Work Phone: Start: 11-08-2024 X-ray of lumbosacral spine Alexandrea REYES Work Phone: Start: 07-30-2024 Urinalysis PARIS BENZ Comment on above: Result Comment: URIN ALYSIS Performed By: #### 2 [id number] #### [place] [id number] Start: 04-29-2024 Urinalysis PARISWILLIAM BENZ Comment on above: Result Comment: URIN ALYSIS Performed By: #### 2 [id number] #### [place] [id number] Appendectomy MELISSA LUU MD Cholecystectomy MELISSA NICHOLAS MD Ligation of fallopian tube Madisyn DARLING MD Plan of Treatment Date Care Activity Detail Author Start: 02-21-2026 Urine microalbumin profile DTaP,Tdap,Td Vaccine (2 - Td or Tdap) [facility] Start: 02-17-2025 End: 02-17-2025 Patient encounter procedure DDD (degenerative disc disease), lumbar -[facility] Work Phone: Start: 02-07-2025 MRI of lumbar spine Spine Lumbar (Routine) [facility] Start: 02-07-2025 Patient encounter procedure Registered Clinical -MRI - [facility] Work Phone: Start: 12-23-2024 Influenza vaccination Influenza Vaccine (#1) [facility] Start: 11-08-2024 X-ray of lumbosacral spine L/S Spine Min 4 Views [facility] Start: 11-08-2024 XR Spine Lumbar and Sacrum GE 4 Views [facility] Start: 2014 Pneumococcal Vaccine: 50+ (1 of 1 - PCV) Pneumococcal Vaccine: 50+ (1 of 1 - PCV) [facility] Start: 2014 Shingrix Vaccine (1 of 2) Shingrix Vaccine (1 of 2) [facility] Start: 06-19-2013 Screening for malignant neoplasm of cervix Cervical Cancer Screening [facility] Start: 2009 Diabetes Screening Diabetes Screening [facility] Start: 2009 Lipid panel Lipid Screening [facility] Start: 2009 Screening for malignant neoplasm of colon [facility] Start: 06-19-2009 Screening for malignant neoplasm of breast Mammogram Screening [facility] Start: 1982 Anxiety Screening Anxiety Screening [facility] Start: 1982 Depression Screening Depression Screening [facility] Start: 1982 Hepatitis C screening Hepatitis C Screening [facility] Start: 1982 HIV screening HIV Screening [facility] MR Cervical spine [facility] Payers Date Payer Category Payer Self-pay 2019 Medicaid [employer] [id number] 2019 Unknown [id number] 1965 Unknown [id number] [id number] 1965 Unknown [id number] [id number] 1965 Unknown [id number] 2.16.840.1.734689.3.579.2.651 1965 Unknown [id number] 2.16.840.1.689066.3.579.2.651 1965 Unknown [id number] 2.16.840.1.155739.3.579.2.651 1965 Unknown [id number] 2.16.840.1.490455.3.579.2.651 1965 Unknown [id number] 2.16.840.1.921848.3.579.2.651 1965 Unknown [id number] 2.16.840.1.857116.3.579.2.651 1965 Unknown [id number] 2.16.840.1.635868.3.579.2.651 1965 Unknown [id number] 2.16.840.1.305176.3.579.2.651 Unknown [id number] Unknown [id number] 2.16.840.1.087114.3.579.2.462 Unknown [id number] 2.16.840.1.208869.3.579.2.462 Unknown [id number] 2.16.840.1.633888.3.579.2.462 Unknown [id number] 2.16.840.1.036116.3.579.2.462 Unknown [id number] 2.16.840.1.391671.3.579.2.462 Unknown [id number] [id number] Unknown [id number] 2.16.840.1.635097.3.579.2.462 Social History Date Type Detail Facility Start: 06-21-2023 End: 11-12-2024 Tobacco smoking status Ex-smoker (finding) [facility] Comment on above: Quit in 1996, smoked for 14 years. Start: 1965 Sex Assigned At Female A [facility] Start: 01-27-2022 Tobacco smoking stat [facility] Never smoked tobacco (finding) [facility] End: 04-24-1998 History of tobacco use Current smoker [facility] End: 04-24-1998 History of tobacco use Cigarette Smoker [facility] Start: 11-12-2024 Tobacco use and exposure Smokeless tobacco non-user [facility] Start: 11-12-2024 Alcoholic beverage intake Current drinker of alcohol (finding) [facility] Start: 11-12-2024 History of Social function [facility] Start: 11-12-2024 Tobacco use panel [facility] Start: 06-19-2008 Alcohol [facility] Start: 1965 Sex assigned at Not on file [facility] Goals Date Patient Goal Desired Activity /State Personal health goal Functional Status Date Assessment Result Facility 08-28-2023 Functional Status Assistive Device None [facility] 08-28-2023 Functional Status [facility] 08-25-2023 Functional Status Sensory Deficits None [facility] Mental Status Date Assessment Result Facility 08-28-2023 Mental Status Orientation Oriented x 4 [facility] 08-28-2023 Mental Status [facility] Clinical Notes 08-28-2023 to 01-31-2025 Magaly Alba DO - 11/12/2024 3:07 PM EDT Note Date & Type Note Facility 01-31-2025 Progress note [facility] 01-31-2025 Radiology Diagnostic study note [facility] Imaging Services [address] [place] [address] Cerv Spine 4 or 5 Views MR#: [id number] Acct: [id number] Name: PARTHA BROWN Rep #: [id number] : 1965 F 59 From: Kim Jeffers MD PCP: AMY Finney Status: DEP A MB Study:Cerv Spine 4 or 5 Views Date of Exam: 01/31/25 Exam# [id number] Ordering Dr: Dillon Cortse PROCEDURE: CERV SPINE 4 OR 5 VIEWS 01/31/2025 REASON FOR EXAM: ON GOING PAIN TECHNIQUE: Procedure Code: [facility] Modality: DX Procedure: CERV SPINE 4 OR 5 VIEWS Frontal and lateral (neutral, flexion, extension) views of the cervical spine COMPARISON: None FINDINGS: Vertebral body heights are maintained. There is mild anterolisthesis of C4 on C5 and minimal retrolisthesis of C5 on C6, which is without significant change on the flexion and extension imaging. Multilevel disc height loss with endplate osteophyte formation and facet arthrosis, worst at C5-6. Left neck vascular calcification. Lung apices unremarkable. Prevertebral soft tissues normal. RAD/Cerv Spine 4 or 5 Views IMPRESSION: 1. Mild listhesis as detailed above, without evidence of dynamic instability. 2. Moderate degenerative changes of the cervical spine are worst at C5-6. Reading Location: [facility] CC: HAR[employer] T[employer] CAPTAIN-C Alexandrea Echols; BONITA Ocampo ~ Lead Teacher: Signed [facility] 11-12-2024 Note HNO ID: [id number] Author: MAGALY ALBA DO Service: ? Author Type: Physician Type: Progress Notes Filed: 11/12/2024 15:55 Note Text: [facility] V[facility] Thor[facility] [place] DEPARTMENT OF VASCULAR SURGERY OUTPATIENT VISIT DATE November 12, 2024 OUTPATIENT VISIT TYPE CONSULTATION SERVICE DATE: 11/12/2024 SERVICE TIME: 3:07 PM PRIMARY CARE PHYSICIAN: No primary care provider on file. REFERRING PROVIDER: No referring provider defined for this encounter. Consult requested for an opinion regarding the evaluation and treatment of the above. My final impression and recommendations will be communicated back to the requesting physician by way of the shared medical record or letter via [place] mail. CHIEF COMPLAINT: Peripheral arterial disease HISTORY OF PRESENT ILLNESS: Vascular consultation at the request of . A copy of this consultation note will be provided to the requesting physician by way of shared Medical record or letter to requesting physician via US mail. Ms. Brown is a 58 year old female who is seen today for evaluation of abnormal SRIDHAR. She notices bilateral leg pain from hip to toes- feels tingling and poking sensations. She has to constantly stretch her legs and move them. She is having difficulty with ambulation due to pain especially at long distances. Standing and sitting for prolonged periods of time increase pain. She has tried a restless leg medication in the past which helped. Denies claudication. She is working with back doctor for her pain. PAST MEDICAL HISTORY Diagnosis Date Essential hypertension, benign PAST SURGICAL HISTORY Procedure Laterality Date APPENDECTOMY LAPAROSCOPY SURG CHOLECYSTECTOMY Cholecystectomy, lap LIG/TRNSXJ FLP TUBE ABDL/VAG APPR UNI/BI SOCIAL HISTORY: Social History Tobacco Use Smoking status: Former Current packs/day: 0.00 Types: Cigarettes Quit date: 04/24/1998 Years since quittin.5 Substance Use Topics Alcohol use: Yes Comment: OCCASIONAL Drug use: No FAMILY HISTORY Problem Relation Age of Onset Colon Cancer Maternal Aunt Cancer Paternal Grandmother Coronary Artery Disease Brother Hypertension Brother MEDICATIONS: HYDROCHLOROTHIAZIDE 25 MG TAB Take one(1) tablet daily. LABETALOL 200 MG TAB BENAZEPRIL 20 MG TAB ALLERGIES: ALLERGIES No Known Allergies REVIEW OF SYSTEM: Constitutional: No weight loss, malaise or fevers. HEENT: No changes in hearing or vision, no nose bleeds or other nasal problems, Head Positive for headache Respiratory: Negative for cough, wheezing, or shortness of breath Cardiovascular: Positive for chest pain, leg swelling, and palpitations Gatrointestinal: Negative for abdominal discomfort, blood in stools or black stools or change in bowel habits Genitourinary: No history of dysuria, frequency, or incontinence Musculoskeletal: Positive for back pain, joint pain, and muscle pain Endocrine: Positive for heat intolerance Hematology/Lymphatic: Negative for prolonged bleeding, bruising easily or swollen nodes Neurologic: No history or headaches, syncope, paralysis, seizures or tremors Integumentary: Negative for lesions, rash, and itching. PHYSICAL EXAM: VITALS: [facility] 05/26/2008 General: Alert and oriented Integumentary: Normal color, no rash, no lesions. HEENT: EOM, pupils equal, round and reactive. Cardiovascular: Pulse regular. Lungs: No chest deformities or chest wall tenderness. Abdomen: Not examined Extremities: No deformity, no edema or tenderness, no joint swelling or clubbing. Neurological: Normal cognition and motor skills. Vascular: Dorsalis Pedal Right: Normal - Left: Normal Diagnostic tests reviewed for today's visit: Most recent labs Most recent imaging PVRs- bilateral ABIs 1.1, normal IMPRESSION: Ms. Brown is a 58 year old female with lower extremity pain . PLAN and RECOMMENDATIONS: Reviewed PVRs No significant arterial disease noted. Images not available, reviewed report Discussed multifactorial in nature Agree with spine evaluation She also may benefit from sleep medicine evaluation for her snoring/restless leg- possible sleep apnea Follow up as needed SIGNATURE: Magaly Alba DO PATIENT NAME: Partha Brown DATE: November 12, 2024 TIME: 3:07 PM [facility] 11-12-2024 History of Present illness Narrative Images from the original note were not included. Heart , Vascular and Thoracic [place] DEPARTMENT OF VASCULAR SURGERY OUTPATIENT VISIT DATE November 12, 2024 OUTPATIENT VISIT TYPE CONSULTATION SERVICE DATE: 11/12/2024 SERVICE TIME: 3:07 PM PRIMARY CARE PHYSICIAN: No primary care provider on file. REFERRING PROVIDER: No referring provider defined for this encounter. Consult requested for an opinion regarding the evaluation and treatment of the above. My final impression and recommendations will be communicated back to the requesting physician by way of the shared medical record or letter via US mail. CHIEF COMPLAINT: Peripheral arterial disease HISTORY OF PRESENT ILLNESS: Vascular consultation at the request of . A copy of this consultation note will be provided to the requesting physician by way of shared Medical record or letter to requesting physician via US mail. Ms. Brown is a 58 year old female who is seen today for evaluation of abnormal SRIDHAR. She notices bilateral leg pain from hip to toes- feels tingling and poking sensations. She has to constantly stretch her legs and move them. She is having difficulty with ambulation due to pain especially at long distances. Standing and sitting for prolonged periods of time increase pain. She has tried a restless leg medication in the past which helped. Denies claudication. She is working with back doctor for her pain. PAST MEDICAL HISTORY Diagnosis Date Essential hypertension, benign PAST SURGICAL HISTORY Procedure Laterality Date APPENDECTOMY LAPAROSCOPY SURG CHOLECYSTECTOMY Cholecystectomy, lap LIG/TRNSXJ FLP TUBE ABDL/VAG APPR UNI/BI SOCIAL HISTORY: Social History Tobacco Use Smoking status: Former Current packs/day: 0.00 Types: Cigarettes Quit date: 04/24/1998 Years since quittin.5 Substance Use Topics Alcohol use: Yes Comment: OCCASIONAL Drug use: No FAMILY HISTORY Problem Relation Age of Onset Colon Cancer Maternal Aunt Cancer Paternal Grandmother Coronary Artery Disease Brother Hypertension Brother MEDICATIONS: HYDROCHLOROTHIAZIDE 25 MG TAB Take one(1) tablet daily. LABETALOL 200 MG TAB BENAZEPRIL 20 MG TAB ALLERGIES: ALLERGIES No Known Allergies REVIEW OF SYSTEM: Constitutional: No weight loss, malaise or fevers. HEENT: No changes in hearing or vision, no nose bleeds or other nasal problems, Head Positive for headache Respiratory: Negative for cough, wheezing, or shortness of breath Cardiovascular: Positive for chest pain, leg swelling, and palpitations Gatrointestinal: Negative for abdominal discomfort, blood in stools or black stools or change in bowel habits Genitourinary: No history of dysuria, frequency, or incontinence Musculoskeletal: Positive for back pain, joint pain, and muscle pain Endocrine: Positive for heat intolerance Hematology/Lymphatic: Negative for prolonged bleeding, bruising easily or swollen nodes Neurologic: No history or headaches, syncope, paralysis, seizures or tremors Integumentary: Negative for lesions, rash, and itching. PHYSICAL EXAM: VITALS: [facility] 05/26/2008 General: Alert and oriented Integumentary: Normal color, no rash, no lesions. HEENT: EOM, pupils equal, round and reactive. Cardiovascular: Pulse regular. Lungs: No chest deformities or chest wall tenderness. Abdomen: Not examined Extremities: No deformity, no edema or tenderness, no joint swelling or clubbing. Neurological: Normal cognition and motor skills. Vascular: Dorsalis Pedal Right: Normal - Left: Normal Diagnostic tests reviewed for today's visit: Most recent labs Most recent imaging PVRs- bilateral ABIs 1.1, normal IMPRESSION: Ms. Brown is a 58 year old female with lower extremity pain . PLAN and RECOMMENDATIONS: Reviewed PVRs No significant arterial disease noted. Images not available, reviewed report Discussed multifactorial in nature Agree with spine evaluation She also may benefit from sleep medicine evaluation for her snoring/restless leg- possible sleep apnea Follow up as needed SIGNATURE: Magaly Alba DO PATIENT NAME: Partha Brown DATE: November 12, 2024 TIME: 3:07 PM documented in this encounter [facility] 11-08-2024 Evaluation note Diagnosis Onset Date Resolution DDD (degenerative disc disease), lumbar acute November 08, 2024 2:34pm Lumbar radiculopathy acute November 08, 2024 2:34pm Spondylolisthesis of lumbar region acute November 08, 2024 2:34pm DDD (degenerative disc disease), lumbar acute January 31 025 9:49am Lumbar radiculopathy acute 2024 9:49am Spondylolisthesis, cervical region acute January 31 9:49am Cervical myelopathy with cervical radiculopathy noneactive January 222024 9:49am DDD (degenerative disc disease), lumbar acute February 17, 025 11:19am Facet syndrome, lumbar acute Oc tober 2024 11:19am Lumbar radiculopathy acute Jano 2024 11:19am Spondylolisthesis, cervical region acute February 17 11:19am Myelopathy of cervical spinal cord with cervical radiculopathy noneactive February 17 11:19am [facility] Work Phone: 1(741) 703-577505-06-2024 Hospital Discharge instructions Patient Education 08/28/2023 10:14:28 Radiology- CT Coronary Angiogram (CUSTOM) VENANGO Coronary CT Angiogram (Coronary CTA or Cardiac CTA) Discharge Instructions [facility] [address] [place] [address] Today, you had a Coronary CT Angiogram. This procedure was done to look at the anatomy of your heart and the surrounding vessels. The images obtained are to help evaluate the presence of coronary heart disease. These instructions should be followed after your procedure to reduce the chance of experiencing complications. Please follow the instructions below to reduce the chance of experiencing complications. Activity: Rest for the remainder of the day. You may resume your normal activity tomorrow. Avoid alcoholic beverages for 24 hours after your procedure. Do not drive or operate heavy machinery for 24 hours after your procedure. Do not make any legal decisions for 24 hours after your procedure. Diet: Resume your normal diet as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 2024 End: November 08, 2024 Team Status: Inactive Member Role/Relationship Status Dates Alexandrea Echols NP, [employer]TAIN-C Primary care physician Active Start: January 31, 2025 End: January 31, 2025 Alexandrea Echols [employer]TAIN, [employer] CAPTAIN-C Referring Provider Active Start: January 31, 2025 End: January 31, 2025 BONITA Ocampo Attending physician Active Sta rt: January 31, 2025 End: January 31, 2025 Team Status: Inactive Member Role/Relationship Status Dates Alexandrea Echols NP, [employer]TAIN-C Primary care physician Active Start: January 31, 2025 End: January 31, 2025 Dr. Linus Laurent MD Attending physician Active Start: January 31, 2025 End: January 31, 2025 Team Status: Active Member Role/Relationship Status Dates Alexandrea Echols NP, NP-Madisyn Primary care physician Active Start: February 07, 2025 BONITA Ocampo Attending physician Active Sta rt: February 07, 2025 BONITA Ocampo Referring Provider Active Star t: February 07, 2025 Team Status: Inactive Member Role/Relationship Status Dates AMY Finney NP Primary care physician Active Start: February 17, 2025 End: February 17, 2025 Alexandrea Echols NP, NP-Madisyn Referring Provider Active Start: February 17, 2025 End: February 17, 2025 BONITA Ocampo Attending physician Active Sta rt: February 17, 2025 End: February 17, 2025 INFORMATION SOURCE (unrecogn ized section and content) DATE CREATED AUTHOR 09/09/[address] [facility] DATE CREATED AUTHOR AUTHOR'S ORGANIZ ATION 11/14/2024 [facility] DATE CREATED AUTHOR AUTHOR'S ORGANIZ ATION 02/06/2025 [facility] DATE CREATED AUTHOR AUTHOR'S ORGANIZ ATION 03/01/2025 [facility] Goals (unrecognized section and content) Goals may be documented in a n alternate section Source Comments (unrecognize d section and content) In the event this informatio n is protected by the Federal Confidentiality of Alcohol and Drug Abuse Patient Records regulations: The Federal rules restrict any use of the information to criminally investigate or prosecute any alcohol or drug abuse patient.[facility] Reason for Visit (unrecogniz ed section and content) Reason Comments New Patient FOR RECORDS PERTAINING TO PATIENTS WHO ARE OR HAVE BEEN ENROLLED IN A CHEMICAL DEPENDENCY/SUBSTANCEABUSE PROGRAM, SOME INFORMATION MAY BE OMITTED. This clinical summary was aggregated from multiple sources. Caution should be exercised in using it in the provision of clinical care. This summary normalizes information from multiple sources, and as a consequence, information in this document may materially change the coding, format and clinical context of patient data. In addition, data may be omitted in some cases. CLINICAL DECISIONS SHOULD BE BASED ON THE PRIMARY CLINICAL RECORDS. [employer] [facility]. provides no warranty or guarantee of the accuracy or completeness of information in this document.
== END | disposition home or self-care (01) ==
PROVIDERS: PCP Nurse Practitioner Family; Referring Provider Student in an Organized Health Care Education/Training Program; Visit Provider Student in an Organized Health Care Education/Training Program
DX: G95.9 Disease of spinal cord, unspecified (principal); M54.12 Radiculopathy, cervical region
CPT/HCPCS: 72141